=== PATIENT | female | born 2000 | race Caucasian/White ===

== ENCOUNTER 2020-04-25 08:00 | Outpatient (CLI) | payer OTHER | END 2020-04-25 23:59 | disposition home or self-care (01) | LOC: LAB.R 08:00 | PROVIDERS: ATTEND Nurse Practitioner Obstetrics & Gynecology | DX: Z11.3 Encounter for screening for infections with a predominantly sexual mode of transmission (principal) | CPT/HCPCS: 81599; 87491; 87591 ==

== ENCOUNTER 2021-10-19 05:12 | Emergency (ER) | payer OTHER ==
[2021-10-19 05:39] VITALS: BP 127/73
[2021-10-19 05:40] LABS: GLUCOSE, URINE (UA) 100 mg/dL (NEGATIVE); KETONES,URINE (UA) NEGATIVE (NEGATIVE); PH,URINE 5.5 PH (5.0-7.5)
[2021-10-19 05:42] LABS: CLARITY,URINE CLEAR (CLEAR)
[2021-10-19 05:44] LABS: BILIRUBIN,URINE NEGATIVE (NEGATIVE); HCG UR QUAL NEGATIVE
[2021-10-19 05:48] LABS: BACTERIA,URINE Few /HPF (None Seen); RBC,URINE 0-5 /HPF (0-5); SQUAMOUS EPITHELIAL CELL,UR NONE SEEN (<= Few); WBC,URINE >25 /HPF (0-5)
--- NOTE | 2021-10-19 05:57 | ED Physician Documentation ---
PD HPI FEMALE - Stated complaint Stated Complaint: FEMALE - Chief complaint Chief Complaint: UTI - History obtained from History obtained from: Patient - History of Present Illness Timing - onset: How many days ago (2) Contributing factors: No: Similar symptoms before: Has not had sx before Recently seen: Not recently seen - Additional information Additional information: c/o 2 days of burning dysuria, urinary frequency, sensation of incomplete voiding Review of Systems Constitutional: denies: Fever : reports: Dysuria, Frequency. denies: Now EGA Musculoskeletal: denies: Back pain PD PAST MEDICAL HISTORY - Past Medical History Past Medical History: No - Present Medications Home Medications: Ambulatory Orders Medication Instructions Recorded Confirmed Nitrofurantoin [Macrobid] 100 mg PO BID #9 cap 10/19/21 - Allergies Allergies/Adverse Reactions: Allergies Allergy/AdvReac Type Severity Reaction Status Date / Time No Known Drug Allergies Allergy Verified 10/19/21 05:47 PD ED PE NORMAL - Vitals Vital signs reviewed: Yes - General General: Alert and oriented X 3, No acute distress, Well developed/nourished - Abdomen Abdomen: Soft, Non tender - Back Back: No CVA TTP Results - Vitals Vitals: Oxygen O2 Source Room air - Labs Labs: Microbiology 10/19/21 05:35 Urine Culture - Final Urine,Clean Catch No growth Laboratory Tests 10/19/21 05:35 Urine Color DK. ORANGE Urine Clarity CLEAR Urine pH 5.5 Ur Specific [place] 1.020 Urine Protein Urine Glucose (UA) 100 H Urine Ketones NEGATIVE Urine Occult Blood Urine Nitrite Urine Bilirubin NEGATIVE Urine Urobilinogen Ur Leukocyte Esterase Urine RBC 0-5 Urine WBC >25 H Ur Squamous Epith Cells NONE SEEN Urine Bacteria Few Ur Microscopic Review INDICATED Urine Culture Comments INDICATED Urine HCG, Qual NEGATIVE PD MEDICAL DECISION MAKING - ED course Complexity details: considered differential, d/w patient ED course: UTI symptoms x 2 days with urinalysis c/w this diagnosis. given macrobid in ED and rx for same transmitted to [facility] Departure - Departure Disposition: 01 Home, Self Care Clinical Impression: Urinary tract infection Qualifiers: Urinary tract infection type: acute cystitis Hematuria presence: without hematuria Qualified Code(s): N30.00 - Acute cystitis without hematuria Condition: Good Instructions: ED UTI Cystitis Female Follow-Up: [facility] [Provider Group] (3-4 days if symptoms are not improving) Prescriptions: Nitrofurantoin [Macrobid] 100 mg PO BID #9 cap Comments: A prescription for the antibiotic (nitrofurantoin) has been electronically submitted to [facility] in [place]. Discharge Date/Time: 10/19/21 06:58
[2021-10-19] MEDS ORDERED: NITROFURANTOIN MACRO 100 MG CAPSULE PO STA (06:47)
== END 2021-10-19 06:58 | disposition home or self-care (01) ==
LOC: ED 05:12
DX: N30.00 Acute cystitis without hematuria (principal)
CPT/HCPCS: 81001; 81025; 87086; 99282; 99283; A9270; 81003

== ENCOUNTER 2022-02-06 13:55 | Emergency (ER) | payer OTHER ==
--- NOTE | 2022-02-06 14:28 | ED Physician Documentation ---
PD HPI CHEST PAIN - Stated complaint Stated Complaint: CHEST PX - Chief complaint Chief Complaint: Resp - History obtained from History obtained from: Patient - Additional information Additional information: 21-year-old woman has had chronic shortness of breath. It started over a year ago. She says that if she went running she got inappropriately short of breath. She was worked up by cardiology and had a stress echo per her description that was negative. Referred to pulmonology but lost to follow-up. It was not too bad until about 2 weeks ago when she got COVID and now if she goes up a flight of stairs she gets short of breath. She denies orthopnea. She does have some chest pressure with it. Denies pedal edema or calf pain. Review of Systems Constitutional: denies: Fever, Chills, Fatigue Cardiac: reports: Chest pain / pressure. denies: Palpitations, Pedal edema, Calf pain Respiratory: reports: Dyspnea. denies: Cough, Hemoptysis, Wheezing PD PAST MEDICAL HISTORY - Present Medications Home Medications: Ambulatory Orders Medication Instructions Recorded Confirmed Nitrofurantoin [Macrobid] 100 mg PO BID #9 cap 10/19/21 - Allergies Allergies/Adverse Reactions: Allergies Allergy/AdvReac Type Severity Reaction Status Date / Time No Known Drug Allergies Allergy Verified 02/06/22 14:02 PD ED PE NORMAL - Vitals Vital signs reviewed: Yes - General General: Alert and oriented X 3, No acute distress - HEENT HEENT: PERRL, EOMI - Neck Neck: Supple, no meningeal sign, No bony TTP - Cardiac Cardiac: RRR, No murmur - Respiratory Respiratory: No respiratory distress, Clear bilaterally - Abdomen Abdomen: Non tender - Back Back: No CVA TTP, No spinal TTP - Derm Derm: Normal color, Warm and dry - Extremities Extremities: No edema, No calf tenderness / cord - Neuro Neuro: Alert and oriented X 3, Normal speech Results - Vitals Vitals: Vital Signs - 24 hr 02/06/22 02/06/22 02/06/22 13:57 15:13 16:00 Temperature 36.3 C L 37.0 C Heart Rate 110 H 101 H 75 Respiratory 14 26 H 19 Rate Blood Pressure 131/97 H 118/70 O2 Saturation 99 99 100 Oxygen O2 Source Room air - EKG (time done) 1437 Rate: Rate (enter#) (91) Rhythm: NSR [place]: Normal Intervals: Normal UT QRS: Normal Ischemia: Normal ST segments - Labs Labs: Laboratory Tests 02/06/22 02/06/22 02/06/22 14:34 14:34 14:34 WBC 7.4 RBC 4.39 Hgb 14.1 Hct 41.4 MCV 94.3 MCH 32.1 H MCHC 34.1 RDW 12.2 Plt Count 276 MPV 9.5 Neut # (Auto) 4.2 Lymph # (Auto) 2.5 [place] # (Auto) 0.5 Eos # (Auto) 0.1 Baso # (Auto) 0.0 Absolute Nucleated RBC 0.00 Nucleated RBC % 0.0 D-Dimer Sodium 139 Potassium 3.8 Chloride 103 Carbon Dioxide 25 Anion Gap 11.0 BUN 9 Creatinine 0.8 Estimated GFR (MDRD) 91 Glucose 96 Calcium 8.9 Total Bilirubin 0.3 AST 30 ALT 40 Alkaline Phosphatase 70 Troponin I High Sens < 2.3 L Total Protein 6.8 Albumin 4.4 Globulin 2.4 Albumin/Globulin Ratio 1.8 Lipase 34 02/06/22 15:45 WBC RBC Hgb Hct MCV MCH MCHC RDW Plt Count MPV Neut # (Auto) Lymph # (Auto) [place] # (Auto) Eos # (Auto) Baso # (Auto) Absolute Nucleated RBC Nucleated RBC % D-Dimer < 200.0 L Sodium Potassium Chloride Carbon Dioxide Anion Gap BUN Creatinine Estimated GFR (MDRD) Glucose Calcium Total Bilirubin AST ALT Alkaline Phosphatase Troponin I High Sens Total Protein Albumin Globulin Albumin/Globulin Ratio Lipase PD MEDICAL DECISION MAKING - ED course ED course: 21-year-old woman has developed worsening chronic dyspnea since COVID a few weeks ago. ACS, PE, pneumonia were considered but no findings of this on thorough testing here. She was supposed to follow-up with pulmonology but that fell through and advised her to push for said referral. Departure - Departure Disposition: 01 Home, Self Care Clinical Impression: Dyspnea Qualifiers: Dyspnea type: dyspnea on exertion Qualified Code(s): R06.00 - Dyspnea, unspecified Condition: Good Record reviewed to determine appropriate education?: Yes Instructions: ED Dyspnea Shortness of Breath Comments: At this point it is certainly reasonable for you to follow-up with a energy analyst given your ongoing shortness of breath. Results here including chest x-ray, cardiac enzymes and CBC and EKG were normal. Return if worsening. Follow-up with your doctor, next available appointment for consideration for pulmonology referral. Discharge Date/Time: 02/06/22 16:22
[2022-02-06 14:46] LABS: BASOPHILS % (AUTO) 0.4 %; EOSINOPHILS # (AUTO) 0.1 10^3/uL (0.0-0.7); EOSINOPHILS % (AUTO) 1.5 %; HCT - HEMATOCRIT 41.4 % (37.0-47.0); HGB - HEMOGLOBIN 14.1 g/dL (12.0-16.0); LYMPHOCYTES # (AUTO) 2.5 10^3/uL (1.5-3.5); LYMPHOCYTES % (AUTO) 33.9 %; MEAN CORPUSCULAR HEMOGLOBIN 32.1 pg (27.0-31.0); MEAN CORPUSCULAR HGB CONC 34.1 g/dL (32.0-36.0); MEAN CORPUSCULAR VOLUME 94.3 fL (81.0-99.0); MEAN PLATELET VOLUME 9.5 fL (7.9-10.8); MONOCYTES # (AUTO) 0.5 10^3/uL (0.0-1.0); MONOCYTES % (AUTO) 7.2 %; NEUTROPHILS # (AUTO) 4.2 10^3/uL (1.5-6.6); NEUTROPHILS % (AUTO) 56.5 %; PLT - PLATELET COUNT 276 10^3/uL (130-450); RED BLOOD COUNT 4.39 10^6/uL (4.20-5.40); RED CELL DISTRIBUTION WIDTH 12.2 % (12.0-15.0); WHITE BLOOD COUNT 7.4 x10^3/uL (4.8-10.8)
[2022-02-06 14:57] LABS: ALBUMIN 4.4 g/dL (3.2-5.5); ALBUMIN/GLOBULIN RATIO 1.8 (1.0-2.2); BILIRUBIN,TOTAL 0.3 mg/dL (0.2-1.0); CALCIUM 8.9 mg/dL (8.5-10.3); CREATININE 0.8 mg/dL (0.4-1.0); POTASSIUM 3.8 mmol/L (3.5-5.0); TOTAL PROTEIN 6.8 g/dL (6.7-8.2)
--- NOTE | 2022-02-06 15:17 | XRAY Report ---
PROCEDURE: Chest 1 View X-Ray INDICATIONS: CHEST PAIN COMMENTS: Chest pain, Pt states difficulty breathing PRIORS: None TECHNIQUE: One view of the chest was acquired. COMPARISON: None FINDINGS: Surgical changes and devices: None. Lungs and pleura: No pleural effusions or pneumothorax. Lungs are clear. Mediastinum: Mediastinal contours appear normal. Heart size is normal. Bones and chest wall: No suspicious bony lesions. Overlying soft tissues appear unremarkable. IMPRESSION: No acute cardiopulmonary abnormality. Reviewed by: Javid Ontiveros on 02/06/2022 3:15 PM PDT Approved by: Javid Ontiveros on 02/06/2022 3:15 PM PDT Station ID: [id number]
[2022-02-06 16:22] VITALS: BP 118/70
== END 2022-02-06 16:22 | disposition home or self-care (01) ==
LOC: ED 13:55
DX: R06.09 Other forms of dyspnea (principal)
CPT/HCPCS: 36415; 80053; 83690; 84484; 85025; 85379; 93005; 99283; 99284

== ENCOUNTER 2022-09-02 14:49 | Outpatient (CLI) | payer OTHER | END 2022-09-02 14:50 | disposition home or self-care (01) | LOC: LAB.N 14:49 | PROVIDERS: ATTEND Nurse Practitioner Obstetrics & Gynecology | DX: Z32.01 Encounter for pregnancy test, result positive (principal) | CPT/HCPCS: 36415; 84702 ==

== ENCOUNTER 2022-09-04 08:09 | Outpatient (CLI) | payer OTHER | END 2022-09-04 08:10 | disposition home or self-care (01) | LOC: LAB.N 08:09 | PROVIDERS: ATTEND Nurse Practitioner Obstetrics & Gynecology | DX: Z32.01 Encounter for pregnancy test, result positive (principal) | CPT/HCPCS: 36415; 84702 ==

== ENCOUNTER 2022-09-16 21:36 | Emergency (ER) | payer OTHER ==
[2022-09-16 22:09] LABS: BILIRUBIN,URINE NEGATIVE (NEGATIVE); GLUCOSE, URINE (UA) NEGATIVE (NEGATIVE); KETONES,URINE (UA) NEGATIVE (NEGATIVE); LEUKOCYTE ESTERASE, URINE NEGATIVE (NEGATIVE); NITRITE,URINE NEGATIVE (NEGATIVE); OCCULT BLOOD,URINE LARGE (NEGATIVE); PROTEIN,URINE NEGATIVE (NEGATIVE); UROBILINOGEN,URINE 0.2 (NORMAL) E.U./dL (NORMAL)
[2022-09-16 22:18] LABS: CALCIUM 9.6 mg/dL (8.5-10.3); CREATININE 0.7 mg/dL (0.4-1.0); POTASSIUM 3.3 mmol/L (3.5-5.0)
[2022-09-16 22:20] LABS: BACTERIA,URINE None Seen /HPF (None Seen); CLARITY,URINE CLEAR (CLEAR); RBC,URINE 0-5 /HPF (0-5); SQUAMOUS EPITHELIAL CELL,UR FEW Squamous (<= Few); WBC,URINE 0-3 /HPF (0-5)
[2022-09-16 22:22] LABS: BASOPHILS % (AUTO) 0.2 %; EOSINOPHILS # (AUTO) 0.2 10^3/uL (0.0-0.7); EOSINOPHILS % (AUTO) 1.3 %; HCT - HEMATOCRIT 42.5 % (37.0-47.0); HGB - HEMOGLOBIN 14.3 g/dL (12.0-16.0); LYMPHOCYTES # (AUTO) 4.1 10^3/uL (1.5-3.5); LYMPHOCYTES % (AUTO) 34.1 %; MEAN CORPUSCULAR HEMOGLOBIN 31.4 pg (27.0-31.0); MEAN CORPUSCULAR HGB CONC 33.6 g/dL (32.0-36.0); MEAN CORPUSCULAR VOLUME 93.2 fL (81.0-99.0); MEAN PLATELET VOLUME 9.6 fL (7.9-10.8); MONOCYTES # (AUTO) 0.7 10^3/uL (0.0-1.0); MONOCYTES % (AUTO) 5.4 %; NEUTROPHILS # (AUTO) 7.1 10^3/uL (1.5-6.6); NEUTROPHILS % (AUTO) 58.7 %; PLT - PLATELET COUNT 350 10^3/uL (130-450); RED BLOOD COUNT 4.56 10^6/uL (4.20-5.40); RED CELL DISTRIBUTION WIDTH 12.2 % (12.0-15.0); WHITE BLOOD COUNT 12.1 x10^3/uL (4.8-10.8)
[2022-09-16 22:33] VITALS: BP 110/80
--- NOTE | 2022-09-16 22:55 | ED Physician Documentation ---
PD HPI FEMALE - Stated complaint Stated Complaint: FEMALE - Chief complaint Chief Complaint: General - History obtained from History obtained from: Patient, Family - History of Present Illness Pain level max: 1 Pain level max: 1 Associated symptoms: Vaginal bleeding. 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 She believes she is about 6 weeks . She states that she had clotting today as well. Nothing makes it better or worse. Mild cramping. No fevers. No chills. No vomiting. No vaginal discharge. Review of Systems Constitutional: denies: Fever, Chills GI: denies: Vomiting, Diarrhea : denies: Dysuria, Frequency, Hesitancy, Discharge Skin: denies: Rash Musculoskeletal: denies: Neck pain, Back pain Neurologic: denies: Headache PD PAST MEDICAL HISTORY - Past Medical History Past Medical History: Yes Psych: Bipolar disorder - Past Surgical History Past Surgical History: No - Present Medications Home Medications: Ambulatory Orders Medication Instructions Recorded Confirmed Pnv No.95/Ferrous Fum/Folic AC 1 cap PO DAILY 09/16/22 09/16/22 [ Tablet] Quetiapine Fumarate [Seroquel] 50 mg PO DAILY 09/16/22 09/16/22 lamoTRIgine [Lamictal] 200 mg PO DAILY 09/16/22 09/16/22 - Allergies Allergies/Adverse Reactions: Allergies Allergy/AdvReac Type Severity Reaction Status Date / Time No Known Drug Allergies Allergy Verified 09/16/22 21:38 - Social History Does the pt smoke?: No Smoking Status: Former smoker Does the pt drink ETOH?: No Does the pt have substance abuse?: No - Immunizations Immunizations are current?: Yes - POLST Patient has POLST: No PD ED PE NORMAL - Vitals Vital signs reviewed: Yes - General General: Alert and oriented X 3, No acute distress, Well developed/nourished - HEENT HEENT: Moist mucous membranes - Neck Neck: Supple, no meningeal sign - Cardiac Cardiac: RRR, Strong equal pulses - Respiratory Respiratory: No respiratory distress, Clear bilaterally - Abdomen Abdomen: Soft, Non tender, Non distended - Derm Derm: Warm and dry - Extremities Extremities: No edema - Neuro Neuro: Alert and oriented X 3 - Psych Psych: Normal mood, Normal affect Results - Vitals Vitals: Vital Signs - 24 hr 09/16/22 09/16/22 09/16/22 21:40 21:59 22:33 Temperature 36.9 C Heart Rate 110 H 115 H 85 Respiratory 20 18 16 Rate Blood Pressure 127/81 H 125/88 H 110/80 O2 Saturation 100 98 100 Oxygen O2 Source Room air - Labs Labs: Laboratory Tests 09/16/22 09/16/22 09/16/22 21:47 21:55 21:55 WBC 12.1 H RBC 4.56 Hgb 14.3 Hct 42.5 MCV 93.2 MCH 31.4 H MCHC 33.6 RDW 12.2 Plt Count 350 MPV 9.6 Neut # (Auto) 7.1 H Lymph # (Auto) 4.1 H [place] # (Auto) 0.7 Eos # (Auto) 0.2 Baso # (Auto) 0.0 Absolute Nucleated RBC 0.00 Nucleated RBC % 0.0 Sodium 135 Potassium 3.3 L Chloride 100 L Carbon Dioxide 20 L Anion Gap 15.0 H BUN 6 Creatinine 0.7 Estimated GFR (MDRD) 106 Glucose 102 H Calcium 9.6 HCG, Quant Urine Color YELLOW Urine Clarity CLEAR Urine pH 7.0 Ur Specific [place] <=1.005 Urine Protein NEGATIVE Urine Glucose (UA) NEGATIVE Urine Ketones NEGATIVE Urine Occult Blood LARGE H Urine Nitrite NEGATIVE Urine Bilirubin NEGATIVE Urine Urobilinogen 0.2 (NORMAL) Ur Leukocyte Esterase NEGATIVE Urine RBC 0-5 Urine WBC 0-3 Ur Squamous Epith Cells FEW Squamous Urine Bacteria None Seen Ur Microscopic Review INDICATED Urine Culture Comments NOT INDICATED Blood Type Blood Type Recheck 09/16/22 09/16/22 09/16/22 21:55 21:55 22:52 WBC RBC Hgb Hct MCV MCH MCHC RDW Plt Count MPV Neut # (Auto) Lymph # (Auto) [place] # (Auto) Eos # (Auto) Baso # (Auto) Absolute Nucleated RBC Nucleated RBC % Sodium Potassium Chloride Carbon Dioxide Anion Gap BUN Creatinine Estimated GFR (MDRD) Glucose Calcium HCG, Quant 12976.00 Urine Color Urine Clarity Urine pH Ur Specific [place] Urine Protein Urine Glucose (UA) Urine Ketones Urine Occult Blood Urine Nitrite Urine Bilirubin Urine Urobilinogen Ur Leukocyte Esterase Urine RBC Urine WBC Ur Squamous Epith Cells Urine Bacteria Ur Microscopic Review Urine Culture Comments Blood Type O POSITIVE Blood Type Recheck O POSITIVE PD Medical Decision Making - ED course Complexity details: reviewed results, re-evaluated patient, considered differential, d/w patient ED course: 21-year-old female with vaginal bleeding. hCG is approximately 38,000. No significant anemia. Her ultrasound reveals an intrauterine , approximately 6 weeks 1 day. We will have her follow-up with her doctor for repeat hCG. Patient counseled regarding signs and symptoms for which I believe and urgent re-evaluation would be necessary. Patient with good understanding of and agreement to plan and is comfortable going home at this time This document was made in part using voice recognition software. While efforts are made to proofread this document, sound alike and grammatical errors may occur. Departure - Departure Disposition: 01 Home, Self Care Clinical Impression: Vaginal bleeding affecting early Condition: Good Instructions: ED Miscarriage Poss Follow-Up: Jacquie Cool CNM, TREATMENT PLANT OPERATOR [Provider Admit Priv/Credential] - Within 3 Days Comments: Your hCG today is 38,234. Please follow-up with Jacquie Roman in approximately 3 days for repeat hCG. Your ultrasound today does show an intrauterine at approximately 6 weeks and 1 day. Please return if you worsen.
--- NOTE | 2022-09-17 00:28 | Ultrasound Report ---
PROCEDURE: OB First Trimester w/TV INDICATIONS: 6 weeks preg, vag bleed OUTSIDE/PRIOR DATING DATA: Last menstrual period (LMP): 07/31/2022. LMP-based estimated date of delivery (KATIUSKA): 05/07/2023. First dating scan (date and location): 09/16/2022. Estimated date of delivery (KATIUSKA) from first dating scan: 05/11/2023. TECHNIQUE: Real-time scanning was performed of the fetus and maternal pelvic organs, with image documentation. Endovaginal scanning was also performed to better visualize the fetus and maternal ovaries. COMPARISON: None. FINDINGS: Embryo: There is an intrauterine with a gestational sac, yolk sac, and pole identifi ed. The crown-rump length measures up to 0.47 cm corresponding to gestational age of 6 weeks 1 day. A small pole is noted. There is heart motion with a rate of 107 bpm. Measurement variability in dating: +/- 4 weeks by LMP, +/- 7 days by mean sac diameter (use before 6 weeks gestation if crown-rump length not able to be measured), +/- 5 days by crown-rump length (6-12 weeks gestation). Maternal organs: Ovaries appear within normal size limits. There is a thick-walled cyst within the le ft ovary with peripheral vascularity and color Doppler interrogation measuring up to approximately 1. 3 cm. IMPRESSION: 1. Single living team with cartilage gestational age of 6 weeks 1 day corresponding to an e stimated delivery date of 05/11/2023. Reviewed by: John Paez MD on 09/17/2022 12:38 AM PST Approved by: John Paez MD on 09/17/2022 12:38 AM PST Station ID: [id number]
== END 2022-09-16 23:40 | disposition home or self-care (01) ==
LOC: ED 21:36
DX: O20.9 Hemorrhage in early pregnancy, unspecified (principal); Z3A.01 Less than 8 weeks gestation of pregnancy; Z87.891 Personal history of nicotine dependence
CPT/HCPCS: 36415; 80048; 81001; 81003; 84702; 85025; 86900; 86901; 87086; 99284

== ENCOUNTER 2022-10-16 14:02 | Outpatient (CLI) | payer OTHER ==
[2022-10-16 17:58] LABS: BASOPHILS % (AUTO) 0.1 %; EOSINOPHILS # (AUTO) 0.1 10^3/uL (0.0-0.7); EOSINOPHILS % (AUTO) 1.3 %; HCT - HEMATOCRIT 40.1 % (37.0-47.0); HGB - HEMOGLOBIN 13.8 g/dL (12.0-16.0); LYMPHOCYTES # (AUTO) 2.5 10^3/uL (1.5-3.5); LYMPHOCYTES % (AUTO) 31.5 %; MEAN CORPUSCULAR HEMOGLOBIN 32.2 pg (27.0-31.0); MEAN CORPUSCULAR HGB CONC 34.4 g/dL (32.0-36.0); MEAN CORPUSCULAR VOLUME 93.5 fL (81.0-99.0); MEAN PLATELET VOLUME 10.5 fL (7.9-10.8); MONOCYTES # (AUTO) 0.4 10^3/uL (0.0-1.0); MONOCYTES % (AUTO) 4.8 %; NEUTROPHILS # (AUTO) 4.9 10^3/uL (1.5-6.6); PLT - PLATELET COUNT 313 10^3/uL (130-450); RED BLOOD COUNT 4.29 10^6/uL (4.20-5.40); RED CELL DISTRIBUTION WIDTH 12.3 % (12.0-15.0); WHITE BLOOD COUNT 7.9 x10^3/uL (4.8-10.8)
[2022-10-16 20:42] LABS: ESTIMATED AVERAGE GLUCOSE 94 mg/dL (70-100); HEMOGLOBIN A1c% 4.9 % (4.27-6.07)
[2022-10-18 05:12] LABS: HBsAG SCREEN Negative (Negative)
[2022-10-18 06:12] LABS: RPR Non Reactive (Non Reactive)
[2022-10-18 08:09] LABS: VARICELLA-ZOSTER AB IGG <135 index (Immune >165)
[2022-10-20 01:07] LABS: HIV SCREEN 4TH GENERATION Non Reactive (Non Reactive)
[2022-10-20 07:08] LABS: HCV AB Non Reactive (Non Reactive)
== END 2022-10-16 14:03 | disposition home or self-care (01) ==
LOC: LAB.N 14:02
PROVIDERS: ATTEND Nurse Practitioner Obstetrics & Gynecology
DX: Z36.89 Encounter for other specified antenatal screening (principal)
CPT/HCPCS: 36415; 83036; 85025; 86592; 86762; 86787; 86803; 86850; 86900; 86901; 87340; 87389

== ENCOUNTER 2022-10-31 14:19 | Outpatient (CLI) | payer OTHER ==
--- NOTE | 2022-10-31 15:40 | Ultrasound Report ---
PROCEDURE: OB First Trimester w/TV INDICATIONS: DATING AND VIABILITY OUTSIDE/PRIOR DATING DATA: Last menstrual period (LMP): 07/31/2022. LMP-based estimated date of delivery (KATIUSKA): 04/29/2023. First dating scan (date and location): 09/16/2022. Estimated date of delivery (KATIUSKA) from first dating scan: 05/11/2023 (working KATIUSKA). TECHNIQUE: Real-time scanning was performed of the fetus and maternal pelvic organs, with image documentation. Endovaginal scanning was also performed to better visualize the fetus and maternal ovaries. COMPARISON: 09/16/2022 FINDINGS: Cervix is closed measuring 3.8 cm. Gestational sac measures 4.2 cm. [place]-rump length is 1.8 cm, demetrius esponding to an ultrasound age of 8 weeks and 2 days. No heart rate is detected. Left corpus shannan teum. IMPRESSION: Findings compatible with failure. Reviewed by: Andres Bee MD on 10/31/2022 3:39 PM PDT Approved by: Andres Bee MD on 10/31/2022 3:39 PM PDT Station ID: [id number]
== END 2022-10-31 14:20 | disposition home or self-care (01) ==
LOC: DI 14:19
PROVIDERS: ATTEND Nurse Practitioner Obstetrics & Gynecology
DX: Z36.87 Encounter for antenatal screening for uncertain dates (principal)

== ENCOUNTER 2022-11-06 16:34 | Outpatient (CLI) | payer OTHER | END 2022-11-06 16:35 | disposition home or self-care (01) | LOC: LAB.N 16:34 | PROVIDERS: ATTEND Nurse Practitioner Obstetrics & Gynecology | DX: O02.1 Missed abortion (principal) | CPT/HCPCS: 36415; 84702 ==

== ENCOUNTER 2023-02-04 15:13 | Outpatient (CLI) | payer OTHER | END 2023-02-04 15:14 | disposition home or self-care (01) | LOC: LAB.N 15:13 | PROVIDERS: ATTEND Nurse Practitioner Obstetrics & Gynecology | DX: O02.1 Missed abortion (principal) | CPT/HCPCS: 36415; 84702 ==

== ENCOUNTER 2023-02-06 14:37 | Outpatient (CLI) | payer OTHER | END 2023-02-06 14:38 | disposition home or self-care (01) | LOC: LAB.N 14:37 | PROVIDERS: ATTEND Nurse Practitioner Obstetrics & Gynecology | DX: Z32.01 Encounter for pregnancy test, result positive (principal) | CPT/HCPCS: 36415; 84702 ==

== ENCOUNTER 2023-02-06 16:23 | Outpatient (CLI) | payer OTHER ==
--- NOTE | 2023-02-06 22:49 | Ultrasound Report ---
PROCEDURE: OB First Trimester w/TV INDICATIONS: POSITIVE TEST OUTSIDE/PRIOR DATING DATA: Last menstrual period (LMP): 01/07/2023. LMP-based estimated date of delivery (KATIUSKA): 10/14/2023. First dating scan (date and location): 02/06/2023. Estimated date of delivery (KATIUSKA) from first dating scan: Not applicable. TECHNIQUE: Real-time scanning was performed of the fetus and maternal pelvic organs, with image documentation. Endovaginal scanning was also performed to better visualize the fetus and maternal ovaries. COMPARISON: None. FINDINGS: Ill-defined possible intrauterine gestational sac present. It measures 3 mm corresponding to 5 weeks 0 days. No crown-rump length identified. No heart tones. No definitive yolk sac. Other: No perigestational fluid collection. Measurement variability in dating: +/- 4 weeks by LMP, +/- 7 days by mean sac diameter (use before 6 weeks gestation if crown-rump length not able to be measured), +/- 5 days by crown-rump length (6-12 weeks gestation). Maternal organs: Ovaries demonstrate cysts with one appearing complex such as corpus luteal cyst. IMPRESSION: Ill-defined possible intrauterine gestational sac without visualized pole or heart tones. Possi ble gestational sac measures 5 weeks 0 days. Recommend correlation of beta hCG levels and short inter alvin imaging ultrasound follow-up. Reviewed by: Pebbles Bonilla MD on 02/06/2023 10:48 PM PDT Approved by: Pebbles Bonilla MD on 02/06/2023 10:48 PM PDT Station ID: [id number]
== END 2023-02-06 16:24 | disposition home or self-care (01) ==
LOC: DI 16:23
PROVIDERS: ATTEND Nurse Practitioner Obstetrics & Gynecology
DX: Z32.01 Encounter for pregnancy test, result positive (principal)
CPT/HCPCS: 36415; 84702

== ENCOUNTER 2023-03-02 21:13 | Emergency (ER) | payer OTHER ==
[2023-03-02 21:42] LABS: BASOPHILS % (AUTO) 0.3 %; EOSINOPHILS # (AUTO) 0.1 10^3/uL (0.0-0.7); EOSINOPHILS % (AUTO) 0.6 %; HCT - HEMATOCRIT 40.7 % (37.0-47.0); HGB - HEMOGLOBIN 13.7 g/dL (12.0-16.0); LYMPHOCYTES # (AUTO) 3.1 10^3/uL (1.5-3.5); MEAN CORPUSCULAR HEMOGLOBIN 31.8 pg (27.0-31.0); MEAN CORPUSCULAR HGB CONC 33.7 g/dL (32.0-36.0); MEAN CORPUSCULAR VOLUME 94.4 fL (81.0-99.0); MEAN PLATELET VOLUME 9.7 fL (7.9-10.8); MONOCYTES # (AUTO) 0.6 10^3/uL (0.0-1.0); MONOCYTES % (AUTO) 5.5 %; NEUTROPHILS # (AUTO) 7.3 10^3/uL (1.5-6.6); NEUTROPHILS % (AUTO) 65.2 %; PLT - PLATELET COUNT 291 10^3/uL (130-450); RED BLOOD COUNT 4.31 10^6/uL (4.20-5.40); RED CELL DISTRIBUTION WIDTH 12.8 % (12.0-15.0); WHITE BLOOD COUNT 11.2 x10^3/uL (4.8-10.8)
[2023-03-02 21:48] LABS: BILIRUBIN,URINE NEGATIVE (NEGATIVE); GLUCOSE, URINE (UA) NEGATIVE (NEGATIVE); KETONES,URINE (UA) NEGATIVE (NEGATIVE); LEUKOCYTE ESTERASE, URINE NEGATIVE (NEGATIVE); NITRITE,URINE NEGATIVE (NEGATIVE); OCCULT BLOOD,URINE NEGATIVE (NEGATIVE); PH,URINE 6.5 PH (5.0-7.5); PROTEIN,URINE NEGATIVE (NEGATIVE); UROBILINOGEN,URINE 0.2 (NORMAL) E.U./dL (NORMAL)
[2023-03-02 21:51] LABS: CLARITY,URINE CLEAR (CLEAR)
[2023-03-02 21:57] LABS: ALBUMIN 4.5 g/dL (3.2-5.5); BILIRUBIN,TOTAL 0.4 mg/dL (0.2-1.0); CALCIUM 9.3 mg/dL (8.5-10.3); CREATININE 0.7 mg/dL (0.6-1.3); POTASSIUM 3.5 mmol/L (3.5-4.5); TOTAL PROTEIN 6.8 g/dL (6.4-8.9)
--- NOTE | 2023-03-02 23:08 | ED Physician Documentation ---
PD HPI ABD PAIN - Stated complaint Stated Complaint: CRAMPING - Chief complaint Chief Complaint: Abd Pain - History obtained from History obtained from: Patient, Family - Additional information Additional information: The patient comes to the emergency department chief complaint of lower abdominal cramps. She is about 7 weeks and has had a miscarriage once before and is mainly concerned because of this. She denies any vaginal bleeding. She has already had ultrasound demonstrating IUP for similar concerns a couple of weeks ago. The patient denies any fevers or chills. No nausea or vomiting. She has not had any changes in her bowel movements and denies any urinary discomfort. No other complaints at this time. She is sexually active with her significant other only. PD PAST MEDICAL HISTORY - Past Medical History Psych: Bipolar disorder - Past Surgical History Past Surgical History: No - Present Medications Home Medications: Ambulatory Orders Medication Instructions Recorded Confirmed Pnv No.95/Ferrous Fum/Folic AC 1 cap PO DAILY 09/16/22 09/16/22 [ Tablet] Quetiapine Fumarate [Seroquel] 50 mg PO DAILY 09/16/22 09/16/22 lamoTRIgine [Lamictal] 200 mg PO DAILY 09/16/22 09/16/22 - Allergies Allergies/Adverse Reactions: Allergies Allergy/AdvReac Type Severity Reaction Status Date / Time No Known Drug Allergies Allergy Verified 03/02/23 21:29 - Social History Does the pt smoke?: No Smoking Status: Former smoker Does the pt drink ETOH?: No Does the pt have substance abuse?: No - Immunizations Immunizations are current?: Yes - POLST Patient has POLST: No PD ED PE NORMAL - Vitals Vital signs reviewed: Yes - General General: Alert and oriented X 3, No acute distress, Well developed/nourished - HEENT HEENT: Atraumatic, PERRL, EOMI, Moist mucous membranes - Neck Neck: Supple, no meningeal sign - Cardiac Cardiac: RRR, No murmur - Respiratory Respiratory: No respiratory distress, Clear bilaterally - Abdomen Abdomen: Soft, Non tender, Non distended - Derm Derm: Normal color, Warm and dry, No rash - Extremities Extremities: No deformity - Neuro Neuro: Alert and oriented X 3 - Psych Psych: Normal mood, Normal affect Results - Vitals Vitals: Oxygen O2 Source Room air - Labs Labs: Laboratory Tests 03/02/23 03/02/23 03/02/23 21:30 21:38 21:38 WBC 11.2 H RBC 4.31 Hgb 13.7 Hct 40.7 MCV 94.4 MCH 31.8 H MCHC 33.7 RDW 12.8 Plt Count 291 MPV 9.7 Neut # (Auto) 7.3 H Lymph # (Auto) 3.1 [place] # (Auto) 0.6 Eos # (Auto) 0.1 Baso # (Auto) 0.0 Absolute Nucleated RBC 0.00 Nucleated RBC % 0.0 Sodium Potassium Chloride Carbon Dioxide Anion Gap BUN Creatinine Estimated GFR (MDRD) Glucose Calcium Total Bilirubin AST ALT Alkaline Phosphatase Total Protein Albumin Globulin Albumin/Globulin Ratio Lipase Beta HCG, Quant 257373.9 Urine Color YELLOW Urine Clarity CLEAR Urine pH 6.5 Ur Specific [place] <=1.005 Urine Protein NEGATIVE Urine Glucose (UA) NEGATIVE Urine Ketones NEGATIVE Urine Occult Blood NEGATIVE Urine Nitrite NEGATIVE Urine Bilirubin NEGATIVE Urine Urobilinogen 0.2 (NORMAL) Ur Leukocyte Esterase NEGATIVE Ur Microscopic Review NOT INDICATED Urine Culture Comments NOT INDICATED 03/02/23 21:38 WBC RBC Hgb Hct MCV MCH MCHC RDW Plt Count MPV Neut # (Auto) Lymph # (Auto) [place] # (Auto) Eos # (Auto) Baso # (Auto) Absolute Nucleated RBC Nucleated RBC % Sodium 136 Potassium 3.5 Chloride 106 Carbon Dioxide 24 Anion Gap 6.0 BUN 4 L Creatinine 0.7 Estimated GFR (MDRD) 105 Glucose 85 Calcium 9.3 Total Bilirubin 0.4 AST 21 ALT 22 Alkaline Phosphatase 72 Total Protein 6.8 Albumin 4.5 Globulin 2.3 Albumin/Globulin Ratio 2.0 Lipase 33 Beta HCG, Quant Urine Color Urine Clarity Urine pH Ur Specific [place] Urine Protein Urine Glucose (UA) Urine Ketones Urine Occult Blood Urine Nitrite Urine Bilirubin Urine Urobilinogen Ur Leukocyte Esterase Ur Microscopic Review Urine Culture Comments - Rads (name of study) OB ultrasound first trimester Relevant Findings:: Final report received, See rad report (Viable intrauterine ) PD Medical Decision Making - ED course Complexity details: reviewed old records, reviewed results, re-evaluated patient, considered differential, d/w patient, d/w family ED course: The patient was evaluated with ultrasound and urinalysis. The urinalysis was completely unremarkable. The patient's ER abdominal panel was also normal with a beta-hCG of 123,000. The patient's CBC showed a white blood cell count of 11.2 and a normal H&H. Her ultrasound showed a viable IUP at approximately 7 weeks 4 days. I discussed with the patient that at this point in time, there is no evidence of any trouble with her . We have discussed the need for OB follow-up and the usual indications for return. Departure - Departure Disposition: 01 Home, Self Care Clinical Impression: Pelvic pain affecting Qualifiers: Trimester: first trimester Qualified Code(s): O26.891 - Other specified related conditions, first trimester Condition: Stable Instructions: Preg Comfort Tips Comments: Your ultrasound looks great tonight. Your baby is just past 7 weeks in size and has a good heartbeat and is in the right place in your uterus. There is no evidence of any concerning findings at this time. Please follow-up with Ms. Jacquie Cool, your sheriff's sergeant, as scheduled on March 13. Forms: PCP List Discharge Date/Time: 03/02/23 23:11
[2023-03-02 23:13] VITALS: BP 120/86
--- NOTE | 2023-03-03 00:11 | Ultrasound Report ---
PROCEDURE: OB First Trimester INDICATIONS: pelvic cramping 7 weeks preg OUTSIDE/PRIOR DATING DATA: Last menstrual period (LMP): 01/07/2023. LMP-based estimated date of delivery (KATIUSKA): 10/14/2023. First dating scan (date and location): 02/19/2023. Estimated date of delivery (KATIUSKA) from first dating scan: 10/15/2023. TECHNIQUE: Real-time scanning was performed of the fetus and maternal pelvic organs, with image documentation. Patient declined transvaginal examination. COMPARISON: 02/19/2023 FINDINGS: Embryo: There is an intrauterine with a gestational sac, yolk sac, and pole redemons trated. The crown-rump length measures up to 1.3 cm corresponding to a calculated gestational age of 7 weeks 4 days. Other: There is a subchorionic hematoma measuring 3.6 x 0.8 x 1.7 cm. Measurement variability in dating: +/- 4 weeks by LMP, +/- 7 days by mean sac diameter (use before 6 weeks gestation if crown-rump length not able to be measured), +/- 5 days by crown-rump length (6-12 weeks gestation). Maternal organs: Left ovary not well visualized. Within the right ovary, there is a hypoechoic struct ure with peripheral vascularity redemonstrated compatible with a corpus luteal cyst. There is also a simple appearing cyst measuring up to 2.6 cm. IMPRESSION: 1. Single living intrauterine demonstrating appropriate interval growth with calculated ges tational age of 7 weeks 4 days. 2. Probable corpus luteal cyst in the right ovary as well as an adjacent simple appearing cyst. Reviewed by: John Paez MD on 03/03/2023 12:09 AM PDT Approved by: John Paez MD on 03/03/2023 12:09 AM PDT Station ID: [id number]
== END 2023-03-02 23:11 | disposition home or self-care (01) ==
LOC: ED 21:13
DX: O26.891 Other specified pregnancy related conditions, first trimester (principal); R10.30 Lower abdominal pain, unspecified; Z87.891 Personal history of nicotine dependence; Z3A.01 Less than 8 weeks gestation of pregnancy
CPT/HCPCS: 36415; 80053; 81001; 81003; 83690; 84702; 85025; 87086; 99281; 99283

== ENCOUNTER 2023-03-25 14:39 | Outpatient (CLI) | payer OTHER ==
[2023-03-25 17:56] LABS: BASOPHILS % (AUTO) 0.2 %; EOSINOPHILS # (AUTO) 0.1 10^3/uL (0.0-0.7); HCT - HEMATOCRIT 41.3 % (37.0-47.0); HGB - HEMOGLOBIN 13.7 g/dL (12.0-16.0); LYMPHOCYTES # (AUTO) 2.5 10^3/uL (1.5-3.5); LYMPHOCYTES % (AUTO) 27.7 %; MEAN CORPUSCULAR HEMOGLOBIN 31.4 pg (27.0-31.0); MEAN CORPUSCULAR HGB CONC 33.2 g/dL (32.0-36.0); MEAN CORPUSCULAR VOLUME 94.7 fL (81.0-99.0); MEAN PLATELET VOLUME 10.4 fL (7.9-10.8); MONOCYTES # (AUTO) 0.5 10^3/uL (0.0-1.0); MONOCYTES % (AUTO) 4.9 %; NEUTROPHILS % (AUTO) 65.9 %; PLT - PLATELET COUNT 291 10^3/uL (130-450); RED BLOOD COUNT 4.36 10^6/uL (4.20-5.40); WHITE BLOOD COUNT 9.2 x10^3/uL (4.8-10.8)
[2023-03-26 04:09] LABS: HBsAG SCREEN Negative (Negative); HCV AB Non Reactive (Non Reactive); HIV SCREEN 4TH GENERATION Non Reactive (Non Reactive)
[2023-03-26 06:11] LABS: RPR Non Reactive (Non Reactive)
[2023-03-26 11:11] LABS: VARICELLA-ZOSTER AB IGG <135 index (Immune >165)
== END 2023-03-25 14:40 | disposition home or self-care (01) ==
LOC: LAB.N 14:39
PROVIDERS: ATTEND Nurse Practitioner Obstetrics & Gynecology
DX: Z36.89 Encounter for other specified antenatal screening (principal)
CPT/HCPCS: 36415; 85025; 86592; 86762; 86787; 86803; 86850; 86900; 86901; 87340; 87389

== ENCOUNTER 2023-05-28 18:24 | Outpatient (CLI) | payer OTHER ==
--- NOTE | 2023-05-29 17:42 | Ultrasound Report ---
PROCEDURE: OB Detailed Eval INDICATIONS: SUPERVISION OF OUTSIDE/PRIOR DATING DATA: Last menstrual period (LMP): 01/07/2023. LMP-based estimated date of delivery (KATIUSKA): 10/14/2023. First dating scan (date and location): 02/19/2023. Estimated date of delivery (KATIUSKA) from first dating scan: 10/15/2023. The below data below was generated using the ultrasound KATIUSKA of 10/15/2023 TECHNIQUE: Real-time scanning was performed of the fetus, with image documentation and biometric measurements. Endovaginal scanning: Not performed COMPARISON: None. FINDINGS: General: A single living intrauterine gestation is present. Presentation: Variable Placenta: Placental position is anterior, without previa. Amniotic fluid index: 13 cm, within normal limits for gestational age. heart rate: 148 beats per minute. Maternal cervical canal: 4.3 cm long; normal length is 2.5 cm or more. biometrics: Biparietal diameter: 4.7 cm, 20 weeks and 1 day Head circumference: 18.03 cm, 20 weeks and 3 days Abdominal circumference: 15.4 cm, 20 weeks and 4 days Femur length: 3.3 cm, 20 weeks and 2 days Estimated gestational age from initial scan: 20 weeks and 0 days Composite gestational age from present scan: 20 weeks and 1 day Estimated weight and percentile: 356 g, 72 percentile Measurement variability in biometric dating: +/- 10 days from 12-20 weeks gestation, +/- 2 weeks from 20-30 weeks gestation, +/- 3 weeks at 30 weeks gestation or later. Anatomic survey: Neuro: Ventricles are normal at less than 10 mm. Cisterna magna is normal at 3-11 mm. Cerebellum i s normal in size and morphology. Nuchal skin fold: Normal at less than 6 mm between 14 and 20 weeks gestational age. Face: Nose and lips, facial profile are not well seen. Spine: No evidence for spina bifida. Heart: 4-chambered heart and the ventricular outflow tracts are not well visualized. Diaphragm: Diaphragm is intact. Stomach: Left-sided stomach is present. Kidneys: No hydronephrosis. Normal is less than 5 mm in 2nd trimester, less than 7 mm in 3rd trimester. Cord: 3 vessel cord has orthotopic insertion. Bladder: Normal in size. Extremities: All 4 extremities are visualized. IMPRESSION: Single living intrauterine gestation with estimated sonographic gestational age of approximately 20 w eeks and 1 day with estimated weight of 356 g (72nd percentile). Expected interval growth has o ccurred. Suboptimal visualization of the facial profile, four-chamber heart, and ventricular outflow tra cts secondary to positioning throughout the examination. Follow-up recommended. Reviewed by: Parvez Mayer MD on 05/29/2023 5:40 PM PDT Approved by: Parvez Mayer MD on 05/29/2023 5:40 PM PDT Station ID: [id number]
== END 2023-05-28 18:25 | disposition home or self-care (01) ==
LOC: DI 18:24
PROVIDERS: ATTEND Nurse Practitioner Obstetrics & Gynecology
DX: Z34.02 Encounter for supervision of normal first pregnancy, second trimester (principal); Z36.89 Encounter for other specified antenatal screening

== ENCOUNTER 2023-06-30 19:42 | Outpatient (CLI) | payer OTHER ==
--- NOTE | 2023-07-01 13:59 | Ultrasound Report ---
PROCEDURE: OB F/U or Repeat INDICATIONS: SUPERVISION OF OUTSIDE/PRIOR DATING DATA: Last menstrual period (LMP): 01/07/2023. LMP-based estimated date of delivery (KATIUSKA): 10/14/2023. First dating scan (date and location): 05/28/2023. Estimated date of delivery (KATIUSKA) from first dating scan: 10/15/2023. The below data below was generated using the ultrasound KATIUSKA of 10/15/2023 TECHNIQUE: Real-time scanning was performed of the fetus, with image documentation and biometric measurements. COMPARISON: 05/28/2023 FINDINGS: General: A single living intrauterine gestation is present. Presentation: Vertex Placenta: Placental position is anterior, without previa. Amniotic fluid index: 14.1 cm, within normal limits for gestational age. heart rate: 141 beats per minute. Maternal cervical canal: 3.6 cm long; normal length is 2.5 cm or more. biometrics: Biparietal diameter: 4.7 cm. 20 weeks 1 day Head circumference: 18.0 cm. 20 weeks 3 days Abdominal circumference: 15.4 cm. 20 weeks 3 days Femur length: 3.3 cm. 20 weeks 2 days Estimated gestational age from initial scan: 20 weeks 0 days Composite gestational age from present scan: 20 weeks 1 day Estimated weight and percentile: 356 g. 72.4 percentile Measurement variability in biometric dating: +/- 10 days from 12-20 weeks gestation, +/- 2 weeks from 20-30 weeks gestation, +/- 3 weeks at 30 weeks gestation or more. anatomy survey. Neuro: Previously normal Nuchal skin fold: Previously normal Face: Nose and lips, facial profile are normal. Spine: Previously normal. Heart: 4 chambered heart is present, with normal ventricular outflow tracts. Diaphragm: Diaphragm is intact. Stomach: Left-sided stomach is present. Kidneys: No hydronephrosis. Normal is less than 4 mm in second trimester, less than 7 mm in thi rd trimester. Cord: Previously normal. Bladder: Normal in size. IMPRESSION: 1. anatomic survey completed and normal. 2. MARIO 14.1 cm. 3. Estimated weight 356 g, 72.4 percentile 4. Composite gestational age from initial scan 20 weeks 0 days. Reviewed by: Javid Ontiveros on 07/01/2023 1:57 PM PST Approved by: Javid Ontiveros on 07/01/2023 1:57 PM PST Station ID: [id number]
== END 2023-06-30 19:43 | disposition home or self-care (01) ==
LOC: DI 19:42
PROVIDERS: ATTEND Nurse Practitioner Obstetrics & Gynecology
DX: Z34.02 Encounter for supervision of normal first pregnancy, second trimester (principal); Z36.89 Encounter for other specified antenatal screening

== ENCOUNTER 2023-07-14 08:12 | Outpatient (CLI) | payer OTHER ==
[2023-07-14 08:41] LABS: HCT - HEMATOCRIT 38.3 % (37.0-47.0); HGB - HEMOGLOBIN 12.7 g/dL (12.0-16.0); MEAN CORPUSCULAR HEMOGLOBIN 31.8 pg (27.0-31.0); MEAN CORPUSCULAR HGB CONC 33.2 g/dL (32.0-36.0); MEAN PLATELET VOLUME 10.2 fL (7.9-10.8); RED BLOOD COUNT 3.99 10^6/uL (4.20-5.40); RED CELL DISTRIBUTION WIDTH 13.9 % (12.0-15.0); WHITE BLOOD COUNT 10.3 x10^3/uL (4.8-10.8)
[2023-07-14 08:54] LABS: GTT GLUCOSE,FASTING 89 mg/dL (74-109)
== END 2023-07-14 08:13 | disposition home or self-care (01) ==
LOC: LAB 08:12
PROVIDERS: ATTEND Nurse Practitioner Obstetrics & Gynecology
DX: Z36.9 Encounter for antenatal screening, unspecified (principal)
CPT/HCPCS: 36415; 82951; 85027

== ENCOUNTER 2023-08-31 17:08 | Outpatient (CLI) | payer OTHER ==
[2023-08-31 17:41] VITALS: BP 118/81
--- NOTE | 2023-08-31 17:43 | PROVIDER PROGRESS NOTE ---
- HPI Chief Complaint: Decreased movement Current : Vital Signs Temperature 37.2 C 08/31/23 17:22 Heart Rate 97 08/31/23 17:22 Respiratory Rate 16 08/31/23 17:22 Blood Pressure 118/81 H 08/31/23 17:22 Temperature 37.2 C 08/31/23 17:22 Heart Rate 97 08/31/23 17:22 Respiratory Rate 16 08/31/23 17:22 Blood Pressure 118/81 H 08/31/23 17:22 O2 Saturation If not protocol: Oxygen Flow, liters/minute - Procedures OB Procedure Performed: NST Diagnosis/Indication for NST: Decreased movement - Plan Plan: Zay is a 22yo @ 33.5wks gestation who presents to [facility] with c/o decreased movement. She states she felt the baby move early this morning but has not felt him move since that time. She denies vaginal bleeding, leakage of fluid or contractions. She is supported by her Edenilson. NST reactive. FHR baseline 130s, moderate variability, + accels, no decels No contractions appreciated via tocometry Pt feels several movements during NST and feels very reassured. Pt has emergency contact number. Pt released home with precautions. She verbalized understanding and agrees to above plan. She denies further quest ions or concerns at this time. FINAL DIAGNOSIS: Decreased movement, third trimester
== END 2023-08-31 17:55 | disposition home or self-care (01) ==
LOC: WFO 17:08 → FBP 17:09 → WFO 17:55
PROVIDERS: ATTEND Nurse Practitioner Obstetrics & Gynecology
DX: O36.8130 Decreased fetal movements, third trimester, not applicable or unspecified (principal); Z3A.33 33 weeks gestation of pregnancy
CPT/HCPCS: 59025; 99213; 99214

== ENCOUNTER 2023-10-22 07:49 | Inpatient (IN) | payer OTHER ==
[2023-10-22] MEDS ORDERED: TRANEXAMIC ACID IN NACL 1,000 MG/100 ML BAG IV PRN (09:09)
[2023-10-22] MEDS ORDERED: CARBOPROST TROMETHAMINE 250 MCG/ML VIAL IM PRN (09:09)
[2023-10-22] MEDS ORDERED: METHYLERGONOVINE 0.2 MG/ML VIAL IM PRN (09:09)
[2023-10-22] MEDS ORDERED: OXYTOCIN 10 UNIT/ML VIAL IM PRN (09:09)
[2023-10-22] MEDS ORDERED: OXYTOCIN/SODIUM CHLORIDE 500 ML IV PRN (09:09)
[2023-10-22] MEDS ORDERED: miSOPROStoL 200 MCG TABLET BC PRN (09:09)
--- NOTE | 2023-10-22 09:18 | HISTORY & PHYSICAL EXAMINATION ---
Admit History - Visit Reason Visit Reason: Other - : 2 Parity: 0 Premature: 0 Ectopic: 0 : 1 Care: positive: [facility] Risk/History: positive: None Complications This : positive: None Smoking Status: Never smoker - Mother's Labs Mother's Blood Type: positive: O Mother's RH: positive: Positive GBS: positive: Group B Step Negative Rubella Status: positive: Non-immune - NST Procedure NST Procedure Start Time 17:19 Stop Time 17:49 NST reactive. FHR baseline 140, moderate variability, + accels, no decels Contractions palpate mild occasionally with soft resting tone Meds/Allgy - Home Medications Home Medications: Ambulatory Orders Medication Instructions Recorded Confirmed Pnv No.95/Ferrous Fum/Folic AC 1 cap PO DAILY 09/16/22 09/16/22 [ Tablet] Quetiapine Fumarate [Seroquel] 50 mg PO DAILY 09/16/22 09/16/22 lamoTRIgine [Lamictal] 200 mg PO DAILY 09/16/22 09/16/22 - Allergies Allergies/Adverse Reactions: Allergies Allergy/AdvReac Type Severity Reaction Status Date / Time No Known Drug Allergies Allergy Verified 03/02/23 21:29 Review of Systems - Constitutional Constitutional: denies: Fatigue, Fever, Malaise - Eyes Eyes: denies: Blurred vision, Spots in vision, Dipolpia - Cardiovascular Cariovascular: denies: Irregular heart rate, Palpitations, Chest pain, Edema - Respiratory Respiratory: denies: Cough, Wheezing, SOB at rest - Gastrointestinal Gastrointestinal: denies: Constipation, Diarrhea, Nausea, Vomiting - Genitourinary Genitourinary: denies: Dysuria, Frequency - Integumentary Integumentary: denies: Rash, Pruritis - Neurological Neurological: denies: Headache - All Other Systems All Other Systems: reports: Reviewed and negative Physical - Abdominal Exam Contraction Frequency (min/apart): occasional Contraction Intensity: positive: Mild Uterine Resting Tone: positive: Soft - Monitoring Heart Rate Baseline: 140 Strip Review: positive: Category I - Presentation Presentation: positive: Vertex - Vaginal Exam Membranes: positive: Membranes intact Dilation (in cm): 4 Effacement (%): 70 Station: positive: -3 Cervical Position: positive: Midposition - Speculum Exam Speculum Exam Performed: positive: No Plan for Labor - Plan For Labor I expect patient to be DC'd or transferred within 96 hours.: Yes Plan for Labor: HPI: This 22yo @ 41.1wks gestation by LMP c/w 6wk U/S presents to [facility] for medical induction of labor secondary to postdates . She had a cervical ripening balloon placed yesterday evening. She reports light brown spotting since placement of the balloon. Experiencing occasional contractions but was able to get some good sleep last night. Reports +FM. She has been a patient of [facility] for the duration of her which has remained uncomplicated. 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 She had negative genetic screening at 10wks with current . She will be admitted to [facility] for medical induction of labor with pre-induction cervical ripening. She is supported by her Edenilson today. Dating criteria: LMP 01/07/2023 Initial U/S @ 6wks c/w LMP dating Serial exams - agree G1: SAB 2012 - trisomy 18 positive G2: current Medical Hx: Anxiety, depression, bipolar disorder Surgical Hx: None Social Hx: Monogamous with male partner Edenilson. Stopped drinking alcohol due to . Denies current use of tobacco, marijuana or other recreational drugs. Hx of recreational tobacco and alcohol use. Reports that she is safe in current relationship. Currently not working. 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 Family Hx: Denies family history of congenital anomalies, Cystic Fibrosis or chromosomal abnormalities. Allergies: NKDA Medications: PNV, Quetiapine 75mg, Lamotrigine 150mg course: O positive, antibody negative Rubella non-immune; varicella non-immune RPRP non-reactive, HIV non-reactive Hep B neg, Hep C neg Initial U/S @ 6.0wks gestation c/w LMP dating Genetic screening- negative FAS: Single living intrauterine gestation with estimated sonographic gestational age of approximately 20 weeks and 1 day with estimated weight of 356 g (72nd percentile). Expected interval growth has occurred. Suboptimal visualization of the facial profile, four-chamber heart, and ventricular outflow tracts secondary to positioning throughout the examination. Completion anatomic survey normal Glucola - neg COVID vaccine x 2, no booster Tdap vaccine: 08/28/2023 Influenza vaccine: 09/12/2023 RSV vaccine: 09/12/2023 GBS negative Physical exam; Normocephalic, atraumatic Heart RRR w/o M/G/R LUngs CTAB Abdomen gravid, soft, nontender EFW 3500g FHR baseline 140s, moderate variability, + accels, no decels Contractions palpate mild intermittently with soft resting tone SVE 4/70/-3, vertex. Intact membranes Cervical ripening balloon removed and pt tolerated well. Bilateral LE's trace edema Mood is good. Assessment: 22yo @ 41.1wks gestation by LMP c/w 6wk U/S Postdates FHR Category I GBS neg Plan: Admit to [facility] for medical induction of labor secondary to postdates . 1 dose of 50mcg BC misoprostol now Initiate pitocin with titration per protocol 4 hours after misoprostol dose. Continuous monitoring. Jacuzzi PRN. Nitrous oxide PRN. Epidural per maternal request. Anticipate .
[2023-10-22 09:32] LABS: BASOPHILS % (AUTO) 0.2 %; EOSINOPHILS # (AUTO) 0.1 10^3/uL (0.0-0.7); EOSINOPHILS % (AUTO) 0.5 %; HCT - HEMATOCRIT 43.2 % (37.0-47.0); HGB - HEMOGLOBIN 14.5 g/dL (12.0-16.0); LYMPHOCYTES # (AUTO) 2.7 10^3/uL (1.5-3.5); LYMPHOCYTES % (AUTO) 24.8 %; MEAN CORPUSCULAR HEMOGLOBIN 31.5 pg (27.0-31.0); MEAN CORPUSCULAR HGB CONC 33.6 g/dL (32.0-36.0); MEAN CORPUSCULAR VOLUME 93.9 fL (81.0-99.0); MEAN PLATELET VOLUME 11.7 fL (7.9-10.8); MONOCYTES # (AUTO) 0.6 10^3/uL (0.0-1.0); MONOCYTES % (AUTO) 5.5 %; NEUTROPHILS # (AUTO) 7.5 10^3/uL (1.5-6.6); NEUTROPHILS % (AUTO) 68.1 %; PLT - PLATELET COUNT 230 10^3/uL (130-450); RED CELL DISTRIBUTION WIDTH 14.3 % (12.0-15.0)
[2023-10-22] MEDS: miSOPROStoL 100 MCG TABLET BC SCH (09:36)
[2023-10-22] MEDS: SODIUM CHLORIDE FLUSH 0.9% 10 ML SYRINGE IVP PRN (09:37)
[2023-10-22] MEDS: LACTATED RINGERS 1,000 ML IV SCH (14:50)
[2023-10-22] MEDS: OXYTOCIN/SODIUM CHLORIDE 500 ML IV SCH (14:50)
--- NOTE | 2023-10-22 19:27 | PROVIDER PROGRESS NOTE ---
Labor Progress Note - Uterine Monitoring Uterine Monitoring Mode: positive: External toco Contraction Frequency (min/apart): intermittent Contraction Intensity: positive: Mild Uterine Resting Tone: positive: Soft - Monitoring Monitor Mode: positive: External ultrasound Heart Rate Baseline: 140 Heart Rate Variability: positive: Moderate (6-25 bmp) Accelerations: positive: Present, 15x15 Decelerations: positive: None Strip Review: positive: Category I - Vaginal Exam Dilation (in cm): 5 Effacement (%): 70 Station: -2 Cervical Position: Midposition - Labor Progress Note Labor Progress Note/Additional Text: S: Patient bouncing on exercise ball. She feels contractions occasionally but reports they are mild and manageable. She is feeling them most significantly in her lower back. Her mood is good. Her Edenilson is supportive at the bedside. O: FHR baseline 140s, moderate variability, + accels, no decels Contractions palapte mild intermittently with soft resting tone SVE 5/70/-2, vertex. AROM at 1920 for a moderate amount of clear fluid Pitocin @ 10mU/mL A: 22yo @ 41.1wks gestation by LMP c/w 6.0wk U/S Postdates Medical IOL - early labor FHR Category I GBS negative P: Continue pitocin for induction of labor with titration per protocol. Continuous monitoring. Jacuzzi PRN. Nitrous oxide PRN. Epidural per maternal request. Anticipate .
[2023-10-22] MEDS: ONDANSETRON 4 MG/2 ML VIAL IVP PRN (20:27)
[2023-10-22] MEDS ORDERED: LIDOCAINE 2%-EPI 1:100000 20 ML MDV ONE (20:32)
[2023-10-22] MEDS ORDERED: ROPIVACAINE 0.2% 200 MG/100 ML BAG EP ONE (20:33)
[2023-10-22] MEDS ORDERED: ePHEDrine 50 MG/ML VIAL IVP PRN (21:10)
[2023-10-22] MEDS ORDERED: NALOXONE 0.4 MG/ML VIAL IVP PRN (21:10)
[2023-10-22] MEDS: LACTATED RINGERS 500 ML IV ONE (21:10)
--- NOTE | 2023-10-22 21:10 | ANESTHESIA ---
Pre-Anesthesia VS, & Labs - Diagnosis Active labor - Procedure induction of labor Vital Signs: Temp Pulse Resp BP Pulse Ox O2 Flow Rate 36.8 C 82 16 109/74 10/22/23 08:20 10/22/23 08:20 10/22/23 08:20 10/22/23 08:20 Height: 5 ft 3 in Weight (kg): 78.018 kg Body Mass Index: 30.4 BMI Classification: Obese - NPO Last Fluid Intake: clear liquids - Is Patient ?: Yes - Lab Results Current Lab Results: Laboratory Tests 10/22/23 08:42: WBC 11.0 H, RBC 4.60, Hgb 14.5, Hct 43.2, MCV 93.9, MCH 31.5 H, MCHC 33.6, RDW 14.3, Plt Count 230, MPV 11.7 H, Neut # (Auto) 7.5 H, Lymph # (Auto) 2.7, [place] # (Auto) 0.6, Eos # (Auto) 0.1, Baso # (Auto) 0.0, Absolute Nucleated RBC 0.00, Nucleated RBC % 0.0 10/22/23 08:42: Blood Type O POSITIVE, Antibody Screen NEGATIVE Lab results reviewed: Yes Fish Bones: 10/22/23 08:42 Home Medications and Allergies Active Medications Carboprost Tromethamine (Carboprost Tromethamine 250 Mcg/Ml Vial) 250 mcg IM Q15M PRN PRN Reason: Step 4: Hemorrhage protocol Oxytocin/Sodium Chloride (Pitocin/Sodium Chloride) 500 mls @ 999 mls/hr IV PRN PRN; Protocol PRN Reason: POST- HEMORR PREVENTION Stop: 10/27/23 09:10 Tranexamic Acid (Tranexamic 1,000 Mg/100ml-Nacl) 1,000 mg in 100 mls @ 600 mls/hr IV .ONCE PRN PRN Reason: EBL >1200mL and within 3hr Stop: 10/27/23 09:10 Oxytocin/Sodium Chloride (Pitocin/Sodium Chloride) 500 mls @ 2 mls/hr IV TITR BRIDGER; Protocol Last Titration: 10/22/23 17:46 Dose: 8 milliunit/min, 8 mls/hr Lactated Ringer's (Lr) 1,000 mls @ 125 mls/hr IV .Q8H BRIDGER Last Admin: 10/22/23 14:50 Dose: 125 mls/hr Lidocaine HCl (Lidocaine 1% 20 Ml Mdv) 20 ml ID .ONCE PRN PRN Reason: PERINEAL REPAIR Stop: 10/27/23 09:10 Methylergonovine Maleate (Methylergonovine 0.2 Mg/Ml Vial) 0.2 mg IM .ONCE PRN PRN Reason: Step 2: Hemorrhage protocol Stop: 10/27/23 09:10 Misoprostol (Misoprostol 200 Mcg Tablet) 800 mcg BC .ONCE PRN PRN Reason: Step 3: Hemorrhage protocol Stop: 10/27/23 09:10 Misoprostol (Misoprostol 100 Mcg Tablet) 50 mcg BC Q4HR [facility] Last Admin: 10/22/23 09:36 Dose: 50 mcg Ondansetron HCl (Ondansetron 4 Mg/2 Ml Vial) 4 mg IVP Q4HR PRN PRN Reason: Nausea / Vomiting Oxytocin (Oxytocin 10 Unit/Ml Vial) 10 unit IM .ONCE PRN PRN Reason: Step one: If no IV access Stop: 10/27/23 09:10 Sodium Chloride (Sodium Chloride Flush 0.9% 10 Ml Syringe) 10 ml IVP 0100,090 0,1700 [facility] Sodium Chloride (Sodium Chloride Flush 0.9% 10 Ml Syringe) 10 ml IVP PRN PRN PRN Reason: NEEDED PER PROVIDER ORDERS Last Admin: 10/22/23 09:37 Dose: 3 ml Pnv No.95/Ferrous Fum/Folic AC [ Tablet] 1 cap PO DAILY 09/16/22 Quetiapine Fumarate [Seroquel] 50 mg PO DAILY 09/16/22 lamoTRIgine [Lamictal] 200 mg PO DAILY 09/16/22 Allergies/Adverse Reactions: Allergies Allergy/AdvReac Type Severity Reaction Status Date / Time No Known Drug Allergies Allergy Verified 03/02/23 21:29 Anes History & Medical History - Anesthetic History Family history of Anesthesia Complications: Denies Family history of Malignant Hyperthermia: Denies - Medical History Cardiovascular: reports: None Pulmonary: reports: None Gastrointestinal: reports: None Urinary: reports: None Neuro: reports: None Musculoskeletal: reports: None Endocrine/Autoimmune: reports: None Blood Disorders: reports: None Skin: reports: None Smoking Status: Never smoker Psychosocial: reports: No issues indicated History of Cancer?: No - Obstetrical History : 2 Parity: 0 Events: reports: None Complications: reports: None Exam General: Alert Dental: WNL Mouth Openin Fingerbreadth Neck Mobility: Normal Mallampati classification: II Thyromental Distance: 4-6 cm Mental/Cognitive Status: Alert/Oriented X3, Normal for patient Plan Anesthesia Type: Epidural Consent for Procedure(s) Verified and Reviewed: Yes Code Status: Attempt Resuscitation ASA classification: 2-Mild systemic disease Is this case an emergency?: No
[2023-10-23] MEDS: ROPIVACAINE 0.2% 200 MG/100 ML BAG EP PRN (03:32)
[2023-10-23] MEDS: AMPICILLIN 2 GM in SODIUM CHLORIDE 0.9% MINIBAG 100 ML IV SCH (05:33)
--- NOTE | 2023-10-23 05:45 | PROVIDER PROGRESS NOTE ---
Labor Progress Note - Uterine Monitoring Uterine Monitoring Mode: positive: External toco Contraction Frequency (min/apart): 2-4 Contraction Intensity: positive: Strong Uterine Resting Tone: positive: Soft - Monitoring Monitor Mode: positive: External ultrasound Heart Rate Baseline: 130 Heart Rate Variability: positive: Moderate (6-25 bmp) Accelerations: positive: Present, 15x15 Decelerations: positive: Early Strip Review: positive: Category I - Vaginal Exam Dilation (in cm): 9 Effacement (%): 100 Station: 1 Cervical Position: Anterior - Labor Progress Note Labor Progress Note/Additional Text: S: Patient feeling significant pressure in her lower back and buttocks during contractions. She is feeling intermittently cold and then hot. She was able to get a little sleep throughout the night. She reports feeling initially very comfortable with the epidural in place but is now feeling like she is starting to get her sensation back specifically in her upper thighs. She was able to feel a cervical exam and has not been able to get comfortable enough to rest during contractions for approximately the past 45 minutes. O: FHR baseline 130s, moderate variability, + accels, occasional early decels Pitocin at 5mU/mL Pt has developed intrapartum fever of 38.6 in addition to maternal tachycardia SVE 9/100/+1 A: 22yo @ 41.2wks gestation by LMP c/w 6.0wk U/S Intrapartum infection Postdates Active labor AROM x 10hrs P: Initiate ampicillin and gentamycin per protocol for treatment of intrapartum infection. Continue pitocin for induction of labor with titration per protocol. Positioned in bed on peanut ball to promote decent and complete dilation. Anesthesia notified and presence requested to evaluate patient pain level. Continuous monitoring Anticipate .
--- NOTE | 2023-10-23 05:59 | ANESTHESIA PROCEDURE NOTE ---
Anesthesia Epidural Template - Patient Report Patient Reports: positive: Inadequate control - Plan Plan: positive: Other - Other Comments Other Comments: Called to evaluate epidural. Pt reports she has had good pain relief but now feels pain in back and perineum. Epidural dosed with 5ml of 2% lidocaine,100mcg fentanyl and 3ml of PF NS. Epidural drip increased to 12ml every 45 mins PIEB. After bolus, she reports improved pain control.
[2023-10-23] MEDS ORDERED: ROPIVACAINE 0.2% 200 MG/100 ML BAG EP PRN (06:00)
[2023-10-23] MEDS: diphenhydrAMINE INJ 50 MG/ML VIAL IVP PRN (06:03)
[2023-10-23] MEDS ORDERED: SODIUM CHLORIDE 0.9% 100ML 100 ML IV ONE (06:05)
[2023-10-23] MEDS ORDERED: GENTAMICIN 80 MG/2 ML VIAL ONE (06:10)
[2023-10-23] MEDS: ACETAMINOPHEN 500 MG TABLET PO PRN ×2 (06:32→14:41)
[2023-10-23] MEDS: SODIUM CHLORIDE 0.9% IV SCH (06:38)
[2023-10-23] MEDS: GENTAMICIN PER PHARMACY IV SCH (06:38)
[2023-10-23] MEDS ORDERED: GENTAMICIN 80 MG/2 ML VIAL IV SCH (07:00)
[2023-10-23] MEDS: lidocaine 1% 20 ML MDV ID PRN (09:34)
[2023-10-23] MEDS ORDERED: WITCH HAZEL/GLYCERIN 1 PAD TOP PRN (10:14)
[2023-10-23] MEDS ORDERED: HYDROCORTISONE 1% CREAM 28 GM TUBE PR PRN (10:14)
--- NOTE | 2023-10-23 10:29 | DELIVERY NOTE ---
Delivery Note - Labor Labor: positive: Augmented by ARM, Induced by oxytocin - Delivery Method Infant Delivery Method: positive: Spontaneous vaginal delivery - Cervical Ripening Method Cervical Ripening Method: positive: Balloon device, Misoprostil - Presentation Presentation: positive: Vertex, BAKARI - right occiput anterior - Nuchal Cord Nuchal Cord: positive: None - Amniotic Fluid Description Amniotic Fluid Description: positive: Thick meconium - Episiotomy Type Episiotomy Type: positive: None - Laceration Laceration: positive: 1st degree, Periurethral, Sulcus - Suture Suture Type: positive: Vicryl Suture Size: positive: 3-0, 4-0 - Delivery Outcome Delivery Outcome: positive: Livebirth - : positive: Placed in direct skin contact with mother, Suctioned, Bulb syringe, Stimulated, Warmed, [place] used, Warmer used sex: positive: Male - Cord Cord: positive: 3 vessels - Placenta Placenta: positive: Intact, Spontaneous - Estimated Blood Loss Estimated Blood Loss (in cc): 236 (QBL) - Post Delivery Events Post Delivery Events: positive: No post delivery events - Delivery Comments (Free Text/Narrative) Delivery Comments (Free Text/Narrative): Labor: This 22yo @ 41.2wks gestation by LMP c/w 6.0wk U/S presented to [facility] on 10/22/2023 for medical induction of labor for postdates . She initially had a cervical ripening balloon in place which was removed upon arrival and cervix was noted to be 4/70/-3 and vertex with intact membranes. She received 1 dose of 50mcg BC misoprostol for pre-induction cervical ripening. Pitocin was initiated for induction of labor with a maximum infusion rate of 10mU/mL. AROM occurred at 1920 and was noted to be a moderate amount of clear fluid. FHR pattern demonstrated a Category I pattern with intermittent periods of Category II throughout labor however overall remained reassuring. Epidural was placed per maternal request. Pt developed tachycardia followed epidural placement with 38.6 temperature shortly after. She was treated per protocol with Ampicillin and Gentamycin and was also given Acetaminophen and temperature resolved. Pt progressed to pushing 0718 with slight anterior lip and was then noted to be c/c/0 at 0722. : Normal SVB of viable male infant on 10/23/2023 @ 0924. Thick meconium amniotic fluid was noted after delivery of head which was not noted prior to delivery. The was placed on maternal abdomen, stimulated and dried. The umbilical cord was allowed to pulsate x 60 seconds at which time it was doubly clamped by CNM and cut by FOB and was moved to infant warmer for suctioning secondary to poor respiratory effort and thick meconium at time of delivery. Apgars were 7/9 at 1 and 5 minutes respectively. 3VC. Cord blood was obtained. Fundal massage and gentle cord traction applied for active management of the third stage. Placenta delivered spontaneously and intact at 0929. QBL 236mL. Fourth stage: Uterine fundus firm and there is no excessive bleeding. The perineum, vagina, and cervix were inspected and found to have 1st degree periurethral laceration which was repaired using a 4-0 vicryl on an SH needle in standard fashion and under sterile conditions. In addition she was noted to have a 1st degree right vaginal sulcus laceration which was repaired with 1 interrupted stitch using a 3-[address]-1 needle in standard fashion and under sterile conditions. Vaginal examination followed repair was performed. Tissues well approximated. Skin to skin contact initiated. Family bonding well. Both mother and baby were left in stable condition.
[2023-10-23] MEDS: SODIUM CHLORIDE FLUSH 0.9% 10 ML SYRINGE IVP SCH (11:14)
[2023-10-23] MEDS: SODIUM CHLORIDE 0.9% 100ML 100 ML IV ONE (11:16)
--- NOTE | 2023-10-23 11:18 | PHARMACY PROGRESS NOTE ---
- Best Possible Medication History Admit Date and Time: 10/22/23 0908 Processed by: Nursing Medications reviewed in ED?: No Medication History completed: Yes Patient Interview: Completed As the person ultimately responsible for medication therapy, providers are able to order a medication from an existing home medication list in [facility] via the "Reconcile Routine" prior to Confirmation of that medication by program support assistant. Such practice is discouraged except when the physician, in their clinical judgment, deems that a medical need exists for a medication without regard to previous use.
[2023-10-23] MEDS: IBUPROFEN 800 MG TABLET PO SCH (12:06)
[2023-10-23] MEDS ORDERED: lamoTRIgine 100 MG TABLET PO SCH (21:00)
[2023-10-23] MEDS: DOCUSATE SODIUM 100 MG CAPSULE PO SCH (21:05)
[2023-10-23] MEDS: QUEtiapine 25 MG TABLET PO SCH (21:05)
[2023-10-23] MEDS: lamoTRIgine 100 MG TABLET PO SCH (21:06)
[2023-10-24] MEDS ORDERED: SODIUM CHLORIDE 0.9% IV SCH (06:00)
[2023-10-24] MEDS ORDERED: GENTAMICIN IV SCH (06:00)
[2023-10-24] MEDS ORDERED: lamoTRIgine 100 MG TABLET PO SCH (09:00)
[2023-10-25 08:21] VITALS: BP 114/77; O2SAT 98
--- NOTE | 2023-10-25 11:37 | Discharge Plan ---
Discharge Plan Problem Reviewed?: Yes Disposition: Home, Self Care Condition: Good Diet: Regular Activity Restrictions: No Restrictions Shower Restrictions: No Driving Restrictions: No Weight Bearing: Full Weight Instruction Topics: Vaginal After, Breastfeed Holds, Breastmilk Expressing, Nutrition , Self Care No Smoking: If you smoke, Please STOP! Call for help. Follow-up with: Jacquie Cool CNM, EDWIN [Provider Admit Priv/Credential] - 1 Week
--- NOTE | 2023-10-25 11:48 | DISCHARGE SUMMARY ---
Discharge Summary Condition at Discharge: Good Discharge Disposition: 01 Home, Self Care - HOSPITAL COURSE Hospital Course: Date of Admission: 10/22/2023 Date of Discharge: 10/25/2023 Diagnosis on Admission: 1. 22yo @ 41.1wks gestation 2. Postdates 3. GBS negative 4. FHR Category I Diagnosis on Discharge: 1. 22yo PPD#2 s/p TSVB viable male 2. 3. Normal recovery Brief History: [facility] on [facility] for medical induction of labor secondary to postdates . She had a cervical ripening balloon in place prior to her arrival and it was removed followed by administration of 50mcg BC misoprostol for effective pre-induction cervical ripening. Pitocin was initiated for induction of labor with titration per protocol and a maximum infusion rate of 10mU/mL. Epidural placed per maternal request. She progressed to spontaneously deliver a viable male on 10/23/2023 @ 0924 with thick meconium after delivery noted. Apgars were 7/9 at 1 and 5 minutes respectively. QBL 236mL. Perineum intact, 1st degree periurethral and 1st degree right vaginal sulcus lacerations repaired in standard fashion and under sterile conditions. She has been doing well in her course. She is ambulating and tolerating a regular diet. She is urinating without difficulty and her lochia is normal. Her pain is well controlled with oral medications. She is without difficulty and she is bonding well with her baby. She will be discharged home today on day #2 with instructions to continue taking her vitamin while and continue taking ibuprofen and tylenol over the counter as needed for pain management. She is currently taking quetiapine and lamotrigine for bipolar depression/anxiety and is currently well controlled. WE discussed her increased risk of anxiety and depression and she is aware and her partner is as well. We reviewed warning s/sx and when to call or present. She intends to follow up with myself in 1 week for routine visit or sooner if needed. She has been given precautions to call if she has any worsening fevers, chills, abdominal pain, increased vaginal bleeding or foul smelling vaginal lochia. Physical exam: Normocephalic, atraumatic. Heart RRR w/o M/G/R, lungs CTAB, abdomen soft and non tender with fundus firm and U-1, perineum intact, light lochia rubra. Bilateral LE's no edema. Mood is good. - ALLERGIES Allergies/Adverse Reactions: Allergies Allergy/AdvReac Type Severity Reaction Status Date / Time No Known Drug Allergies Allergy Verified 03/02/23 21:29 - MEDICATIONS Home Medications: Ambulatory Orders Medication Instructions Recorded Confirmed Pnv No.95/Ferrous Fum/Folic AC 1 cap PO DAILY 09/16/22 10/22/23 [ Tablet] Quetiapine Fumarate [Seroquel] 50 mg PO DAILY 09/16/22 10/22/23 lamoTRIgine [Lamictal] 200 mg PO DAILY 09/16/22 10/22/23 - LABS Result Diagrams: 10/22/23 08:42
--- NOTE | 2023-10-25 11:50 | PROVIDER PROGRESS NOTE ---
Subjective - Subjective Subjective: S: Bonding well with her baby. She is without difficulty and her lochia is normal. Her pain is well controlled with oral medications. She reports the increased pressure on her rectum that occurred shortly after delivery has gradually improved and she is able to sit much more comfortably now. Her Edenilson is supportive at the bedside. O: Normocephalic, atraumatic. Heart RRR w/o M/G/R, lungs CTAB, abdomen soft and nontender with fundus firm and U, perineum intact, light lochia rubra. Bilateral LE's no edema. Mood is good. A: 22yo PPD#1 s/p TSVB viable male infant Normal recovery P: Continue routine care and medications. Evaluate for discharge home tomorrow. Objective - Vital Signs/Intake & Output Vital Signs: Vital Signs x48h Temp Pulse Resp BP Pulse Ox 10/25/23 08:00 37.1 C 87 15 114/77 98 Intake & Output: Intake & Output 10/22/23 10/23/23 10/24/23 10/25/23 23:59 23:59 23:59 23:59 Intake Total 2011.700 2188.710 120 Output Total 750 Balance 2011.700 1438.710 120 - Lab Results Fish Bones: 10/22/23 08:42
--- NOTE | 2023-10-25 13:58 | Labor Flowsheet ---
Labor Flowsheet Datetime Report Generated by CPN: 10/25/2023 13:58 Datetime: 10/25/2023 07:49 VITAL SIGNS NBP Sys/Deidre/Mean (mmHg): 114 : 77 : 85 Pulse: 88 Datetime: 10/25/2023 03:34 SpO2 (%): 99 Datetime: 10/23/2023 10:05 COMMUNICATION Communication: Provider at Bedside Provider Notified (Name): Jacquie Silvina, CNM UTILITY ACCOUNTS DIRECTOR Communication Comments: Provider on unit from 0500 through present, in continuous review of EFM. Datetime: 10/23/2023 10:00 I/O Interventions: Straight Cath (ml) @ 100 Datetime: 10/23/2023 09:58 Stage 2 Comments: repair complete Datetime: 10/23/2023 09:35 Stage of : Recovery Datetime: 10/23/2023 09:34 Medication Comments: PP pit started Datetime: 10/23/2023 09:30 LaborFlag: Labor Datetime: 10/23/2023 09:23 FHR Baseline Rate : 210 Datetime: 10/23/2023 09:15 ASSESSMENT A Monitor Mode: External US Variability: Marked >25 bpm Accelerations: None Decelerations: None Category: Category II Datetime: 10/23/2023 09:00 UTERINE ACTIVITY Monitor Mode: Palpation Frequency (min): 2-3 Quality: Strong Duration (sec): 60-90 Pattern: Normal: <= 5 Contractions in 10 Minutes Resting Tone (Palpate): Relaxed Contraction Comments: TOCO removed, unable to trace; palpation during pushing efforts Datetime: 10/23/2023 08:20 Comments: during accel Datetime: 10/23/2023 08:13 Membranes Ruptured Date/Time: 10/22/2023 19:18 Amniotic Fluid Odor: Normal Datetime: 10/23/2023 07:59 Pushing Progress: Presenting Part Visible; Pushing Effectively with Contractions Datetime: 10/23/2023 07:22 VAGINAL EXAM Dilatation (cm): 10.0 Datetime: 10/23/2023 07:19 Exam by: A. Silvina, CNM Vaginal Exam Comments: complete Datetime: 10/23/2023 07:18 Pushing Position: Pushing with Contractions Datetime: 10/23/2023 07:06 Temperature (C): 38.3 Datetime: 10/23/2023 07:04 Patient Position/Activity: Right Extreme; Low Fowlers Patient Care Comments: peanut ball Datetime: 10/23/2023 07:00 MEDICATIONS Pitocin (milliunits): Increased to @ 9 Datetime: 10/23/2023 06:45 Pitocin Checklist: At Least 1 Acceleration of 15 bpm x 15 Seconds in 30 Minutes or Adequate Variabi lity; No More than 1 Late Deceleration Occurred in Past 30 Minutes; No More than 2 Variable Decelerat ions > 60 Seconds in Duration and decreasing >60 bpm in 30 minutes; No More than 5 Uterine Contractio ns in 10 Minutes for any 20 Minute Interval; Uterus Palpates Soft between Contractions Datetime: 10/23/2023 06:39 Antibiotics: Gentamicin IV (mg) @ 390 Datetime: 10/23/2023 06:30 Analgesics/Sedatives: Tylenol (mg) @ 1000 Antiemetics/Antacids: Zofran (mg) @ 4 Datetime: 10/23/2023 06:15 Monitor Interventions for UA: [place] Adjusted Datetime: 10/23/2023 05:38 PAIN Pain Scale: 6 Datetime: 10/23/2023 05:15 Actions for Decelerations: Other Datetime: 10/23/2023 05:02 Pain Assessment Comments: pt reports feeling a lot of pressure Datetime: 10/23/2023 05:00 STAGE 2 Pushing: Coached on Pushing Datetime: 10/23/2023 04:35 Station: 0 Vaginal Bleeding: Scant Cervix, Consistency: Soft Cervix, Position: Midposition Position 'A': Right Occipital Transverse Datetime: 10/23/2023 03:41 PATIENT CARE IV/Blood Work: IV Bolus Given ml @ 250 Datetime: 10/23/2023 01:27 Vital Sign Comments: radial pulse accurate with monitor reading Datetime: 10/23/2023 00:37 Notification Reason: Status Update Datetime: 10/23/2023 00:26 Effacement (%): 100 Datetime: 10/22/2023 23:37 MATERNAL ASSESSMENT Nausea/Vomiting: Present Datetime: 10/22/2023 22:30 FHR Baseline Changes: No Baseline Change Datetime: 10/22/2023 20:58 Epidural Procedure: Completed Datetime: 10/22/2023 20:40 PROCEDURE TIME OUT Procedure Verify: Correct Patient Position Datetime: 10/22/2023 20:37 ANESTHESIA Anesthesia Plans: Epidural Epidural Positioning: Sitting Datetime: 10/22/2023 19:18 Membrane Status: Ruptured Membranes Rupture Method: Artificial Amniotic Fluid Color: Heavy Meconium Amniotic Fluid Amount: Small Datetime: 10/22/2023 17:47 Respirations: 16 Temperature Route: Oral Pain Presence: Intermittent Pain Type: Cramping Pain Location: Abdomen; Back Pain Relief Measures: Comfort Measures Pain Coping: Talking Through Contractions Datetime: 10/22/2023 09:36 Cervical Ripening Agents: Drummond Balloon; Cytotec @
== END 2023-10-25 13:45 | disposition home or self-care (01) | DRG 806 ==
LOC: WFO 07:49 → FBP 07:50 → WFO 09:08 → FBP 09:08
PROVIDERS: ADMIT Nurse Practitioner Obstetrics & Gynecology; ATTEND Nurse Practitioner Obstetrics & Gynecology
PROC: 3E033VJ Introduction of Other Hormone into Peripheral Vein, Percutaneous Approach (ICD-10-PCS; 2023-10-22)
PROC: 3E0DXGC Introduction of Other Therapeutic Substance into Mouth and Pharynx, External Approach (ICD-10-PCS; 2023-10-22)
PROC: 10E0XZZ Delivery of Products of Conception, External Approach (ICD-10-PCS; principal; 2023-10-23)
PROC: 0UQMXZZ Repair Vulva, External Approach (ICD-10-PCS; 2023-10-23)
PROC: 0UQGXZZ Repair Vagina, External Approach (ICD-10-PCS; 2023-10-23)
DX: O48.0 Post-term pregnancy (principal); O71.4 Obstetric high vaginal laceration alone; Z37.0 Single live birth; Z3A.41 41 weeks gestation of pregnancy; O77.0 Labor and delivery complicated by meconium in amniotic fluid; O71.82 Other specified trauma to perineum and vulva; O99.344 Other mental disorders complicating childbirth; F31.9 Bipolar disorder, unspecified; F41.9 Anxiety disorder, unspecified; Z79.899 Other long term (current) drug therapy; O76 Abnormality in fetal heart rate and rhythm complicating labor and delivery
CPT/HCPCS: 36415; 59409; 85025; 86850; 86900; 86901; A9270; J1200; J7120

== ENCOUNTER 2025-05-30 10:47 | Observation (INO) ==
[2025-05-30] MEDS ORDERED: ceFAZolin (2G) 2 GM in SODIUM CHLORIDE 0.9% MINIBAG 100 ML IV ONE (10:56)
[2025-05-30] MEDS ORDERED: ACETAMINOPHEN 1,000 MG/100 ML 1,000 MG/100 ML BAG IV ONE ×2 (10:56→10:58)
--- NOTE | 2025-05-30 11:12 | ANESTHESIA PROCEDURE NOTE ---
Pre-Anesthesia VS, & Labs Diagnosis Surgical Diagnosis:: Graves disease Procedure Procedure: total thyroidectomy Vitals Vital Signs: Temp Pulse Resp BP Pulse Ox 36.9 C 84 17 121/85 100 05/30/25 11:30 05/30/25 11:30 05/30/25 11:30 05/30/25 11:30 05/30/25 11:30 NPO NPO: >8 hours Is Patient ?: No Lab Results Lab results reviewed: Yes Meds/Allgy Home Medications Ambulatory Orders Medication Instructions Recorded Confirmed methimazole 15 mg tablet 15 mg PO QDAY 03/15/2505/29 Allergies Allergies Allergy/AdvReac Type Severity Reaction Status Date / Time No Known Drug Allergies Allergy Verified 05/30/25 11:05 PFSH Active Problems All Active Problems (Updated 05/25/25 @ 10:20 by Mary Ann Hayes RN) Vaginal pain (Acute) Medical History Medical History (Updated 05/25/25 @ 10:20 by Mary Ann Hayes RN) History of posttraumatic stress disorder (PTSD) History of claustrophobia Hx of bipolar disorder Asthma Depression Anxiety Graves disease Nausea Vaginal delivery Surgical History Surgical History (Updated 05/25/25 @ 10:21 by Mary Ann Hayes RN) Hx of colonoscopy Family History Family History Mother Cervical cancer Asthma Maternal grandfather Diabetes Heart problem Colon cancer Maternal grandmother Cancer Social History Social History (Updated 05/25/25 @ 10:21 by Mary Ann Hayes RN) Smoking Status: Never smoker Do you dip or chew tobacco?: No Do you vape?: No Do you feel safe in your home environment?: Yes History of physical, verbal, emotional, or financial abuse?: No ETOH Use: Wine Frequency: Occasional ETOH - Additional Notes: 1-2 month Substance Use: cannabis (any form) Substance Use Details: smokes 4 times week POLST Patient has POLST: No Anesthesia Exam (Expanded) Exam General: Alert, Oriented x3 and Cooperative Dental: WNL Mouth Openin Fingerbreadth Neck Mobility: Normal Thyromental Distance: 4-6 cm Respiratory: Normal breath sounds Cardiovascular: Regular rate Neurological: Normal speech Mental/Cognitive Status: Alert/Oriented X3 and Normal for patient Cognitive Status: Within normal limits Exam Exam Vital Signs: Vital Signs x48h Temp Pulse Resp BP Pulse Ox 05/30/25 11:30 36.9 C 84 17 121/85 100 Plan Plan Anesthesia Type: General Consent for Procedure(s) Verified and Reviewed: Yes Code Status: Attempt Resuscitation ASA Classification ASA classification: 2-Mild systemic disease Is this case an emergency?: No
[2025-05-30] MEDS ORDERED: PROPOFOL 200 MG/20 ML VIAL IVP ONE ×2 (11:16→19:15)
[2025-05-30] MEDS ORDERED: LIDOCAINE-PF 2% 10 ML AMP SUBQ ONE ×2 (11:16→19:15)
[2025-05-30] MEDS ORDERED: ROCURONIUM 50 MG/5 ML VIAL ONE ×2 (11:17→20:43)
[2025-05-30] MEDS: LACTATED RINGERS 1,000 ML IV PRN (11:44)
[2025-05-30] MEDS ORDERED: BUPIVACAINE 0.5%-EPI 1:200000 PF 10 ML VIAL ONE ×2 (11:54→21:08)
[2025-05-30] MEDS ORDERED: METHYLENE BLUE 0.5% 50 MG/10 ML AMPULE ONE (11:54)
[2025-05-30 11:59] LABS: HCG UR QUAL NEGATIVE
[2025-05-30] MEDS ORDERED: fentaNYL 100 MCG/2 ML VIAL IVP PRN (12:11)
[2025-05-30] MEDS ORDERED: ATROPINE ABBOJECT 1 MG/10 ML SYRINGE IVP PRN (12:11)
[2025-05-30] MEDS ORDERED: NALOXONE 0.4 MG/ML VIAL IVP PRN (12:11)
[2025-05-30] MEDS ORDERED: MORPHINE 2 MG/ML CARPUJECT IVP PRN (12:11)
[2025-05-30] MEDS ORDERED: METOCLOPRAMIDE 10 MG/2 ML VIAL IVP PRN (12:11)
[2025-05-30] MEDS ORDERED: ePHEDrine 50 MG/ML VIAL IVP PRN (12:11)
[2025-05-30] MEDS ORDERED: fentaNYL 100 MCG/2 ML VIAL ONE ×5 (12:14→22:56)
[2025-05-30] MEDS ORDERED: MIDAZOLAM 2 MG/2 ML VIAL ONE ×4 (12:14→22:55)
--- NOTE | 2025-05-30 12:40 | Preop H&P Attestation ---
Preop H&P Attestation Preop History & Physical H&P must be within last 30 days.: The patient was reevaluated in Room 8 of [facility]'s personal care assistant unit and the indication and history were reviewed with the patient and her . The patient's questions were answered. The patient was re-examined and there are no substantive changes. The operative site was positively identified. The patient and I reconfirmed the upcoming procedure and consent. The postoperative instructions were reiterated and answered any and all questions that they had. Preop H&P Date: 05/18/25
[2025-05-30] MEDS ORDERED: PHENYLEPHRINE HCL 0.5 MG/5 ML AMPULE ONE ×3 (12:58→20:58)
[2025-05-30] MEDS ORDERED: LACTATED RINGERS 1,000 ML IV SCH (13:00)
[2025-05-30] MEDS ORDERED: ONDANSETRON 4 MG/2 ML VIAL ONE ×2 (13:01→16:45)
[2025-05-30] MEDS ORDERED: DEXAMETHASONE 4 MG/ML VIAL ONE (13:01)
[2025-05-30] MEDS ORDERED: METOPROLOL 5 MG/5 ML VIAL IVP ONE (13:09)
[2025-05-30] MEDS ORDERED: SUGAMMADEX 200 MG/2 ML VIAL IVP ONE ×2 (13:40→19:26)
[2025-05-30] MEDS ORDERED: HYDROmorphone 1 MG/ML CARPUJECT ONE (15:00)
[2025-05-30] MEDS ORDERED: HYDROmorphone 0.5 MG/0.5 ML SYRINGE ONE (16:45)
[2025-05-30] MEDS: ONDANSETRON 4 MG/2 ML VIAL IVP PRN ×2 (16:46→18:59)
[2025-05-30] MEDS: HYDROmorphone 0.5 MG/0.5 ML SYRINGE IVP PRN ×2 (16:46→18:41)
--- NOTE | 2025-05-30 16:58 | ANESTHESIA POST OP EVALUATION ---
Anesthesia Post Eval Post Anesthesia Eval Vitals: Last Vital Signs Temp 36.6 C 05/30/25 16:30 Pulse 102 H 05/30/25 16:45 Resp 21 05/30/25 16:45 BP 118/74 05/30/25 16:45 Pulse Ox 96 05/30/25 16:45 O2 Flow Rate 05/30/25 16:35 CV Function Including HR & BP: Stable Pain Control: Satisfactory Nausea & Vomiting: Negative Mental Status: Baseline Respiratory Status: Airway Patent Hydration Status: Satisfactory Anesthesia Complications: None
--- NOTE | 2025-05-30 17:28 | OPERATIVE REPORT ---
Operative Report General Procedure Data: Operation Date: 05/30/25 12:00 Proposed Procedures p Thyroidectomy(Not Applicable) - Kiran Dan MD Actual Procedures p Total Thyroidectomy(Not Applicable) - Kiran Dan MD Pre-Op Diagnosis: GRAVES DISEASE Anesthesia Type General Case Staff Anesthesia Provider: [place]an Anesthesia Provider: Kvng Betancourt Assisting Provider: Puneet Espinoza Case Times Into Recovery: 05/30/25 16:27 Procedure Start: 05/30/25 13:23 Procedure End: 05/30/25 16:20 Time out: 05/30/25 13:22 Other Other Information/Narrative: Patient Name: Zay Ornelas Patient date: 2000 Patent MR number: [id number] Date of procedure: 05/30/2025 Preoperative Diagnosis/Indications: Graves' disease with desire for thyroidectomy Postoperative Diagnosis: Graves' disease with desire for thyroidectomy Procedure: Total thyroidectomy CPT 71753 Fluids: 1200 mL EBL: 40 mL Urine output: Not measured Drains: None Findings: Normal-sized thyroid somewhat adherent to surrounding tissues Complications: None Surgeon/Dictated by: Kiran Dan MD Clinical Support Associate: Kristy Espinoza MD Bass Singer: North Beltran CRNA followed by Kvng Singh CRNA Anesthesia type: General Endotracheal +10 mL half percent Marcaine with epinephrine Procedure: After verbal and written informed consent was obtained detailing the operation, the alternatives the operation including no operation, risks of infection, bleeding requiring transfusion with its risks, nerve injury, and and after I met with the patient confirming the surgery and the site of surgery, the patient was brought to the operative suite and placed supine on the operating table. Great care was taken to avoid pressure points to prevent pressure necrosis or nerve injury. Monitoring devices were applied along with TEDs and pneumatic compression stockings (to prevent DVT). An intravenous line was started and anesthesia was maintained throughout the case. The patient was monitored for cardiac, blood pressure, and oxygen saturation continuously. The patient received preoperative antibiotics for surgical prophylaxis. [place]an CRNA sedated and anesthetized the patient for the entire procedure. The patient was prepped and draped in the usual sterile manner. With the patient draped my initials were clearly visible. A "time in" then confirmed that the patient was identified with 3 identifiers (name, date, and medical record number), the history and physical was updated and in the chart, the signed consent confirming the procedure was in the chart, the patient was in the correct position, the aforementioned prophylactic measures were in place or given, we had the correct personnel and equipment to complete the procedure and that anesthesia and the surgical team were given an opportunity to express any concerns. With the agreement of everyone in the room we proceeded with the operation. A curvilinear incision was made in the patient's neck corresponding with a normal crease approximately 2 cm superior to the clavicular head. This incision was taken down to the platysma muscle. The platysma was incised using Bovie electrocautery. Superior and inferior flaps were then raised using finger dissection. Small superficial veins were seen and avoided. The fascia of the sternohyoid muscle was grasped bilaterally and opened at the midline using Bovie electrocautery. The dissection continued past the sternal thyroid muscle onto the thyroid. Once the thyroid was clearly seen Spring retractors, Army-[place]'s and green retractors were used to keep the muscle clear from the area of dissection without incising the muscle. The anterior surface of the thyroid was cleared of adhesions using blunt dissection. I first approached the left thyroid. This was taken laterally until the thyroid itself could be reflected up. The thyroid was reflected up and the middle thyroidal vein was sacrificed using the LigaSure. The superior aspect of the thyroid was then mobilized again using blunt dissection where applicable but there was some dense adhesions of the thyroid to the surrounding tissues and this had to be taken down with a peanut as well as careful Bovie electrocautery. Once the superior pole was identified this was ligated twice with a 3-0 silk tie and a clip was placed on the superior attachments. The attachments were then transected using Metzenbaum scissors thus freeing up the superior pole. Additional adhesions were taken down using primarily blunt dissection. Dissection of the thyroid proceeded then from superior to inferior making every effort to identify and avoid the recurrent laryngeal nerve. We looked extensively but the nerve was not identified with any degree of certainty during this case. The left inferior parathyroid unfortunately was devascularized and freed up with the inferior pole but kept to be reimplanted later in the case. I marked this with a small clip. The inferior pole was then similarly freed to the superior pole and in such manner the thyroid was rolled up off of the trachea. Great care was taken to remain on the thyroid itself. In several areas where there was a question whether or not injury in the area of the nerve could occur I opted to leave some small amount of thyroid tissue behind. Once the midline was reached the dissection switched to the patient's right-hand side. In a similar manner the right middle thyroidal vein was sacrificed using LigaSure. Dissection then went superiorly to the superior pole. This side was similarly freed and the superior pole was controlled using 2 sutures superiorly and inferiorly with a clip noted superiorly. This was transected freeing the superior pole but unfortunately the tie on the superior pole came free with resulting bleeding. This was controlled via placement of 2 clips. But prior to the 2 clips being placed probably 20 to 30 mL of blood were lost. Dissection then progressed inferiorly much like on the left-hand side. Visualization was better on the patient's right-hand side than on the left-hand side but still every effort was made to fully identify the nerve and although there were 2 candidates I could not identify which was the nerve with certainty but in both cases great care was taken not to injure any of the tissues nearby these 2 candidates. On the patient's right-hand side both parathyroids were identified and retained in place. The thyroid was then rolled laterally to medially and its attachments to the midline (trachea) were taken using a combination of LigaSure as well as Bovie electrocautery and the thyroid was removed from the operative field. First the patient's left and then the right resection cavities were examined for hemostasis. A small persistent bleeder on the right-hand side was controlled using Bovie electrocautery but I believe due to the adhesive nature of the thyroid there was quite a bit of oozing and this was controlled via application of Surgiflo. The left inferior parathyroid was placed between the left sternohyoid and the left sternothyroid muscles. Again I repeat that I had marked this with a clip. No drain was required. The fascia of the sternohyoid muscle was then approximated using a 3-0 Vicryl suture in a running fashion. The platysma was approximated using a 3-0 Vicryl suture in an interrupted simple fashion. Five 5-0 nylon sutures were used to approximate the skin in an interrupted mattress fashion. The wound was then injected with 10 mL of 1/2% marcaine with epinephrine. The skin was prepped with Benzoin and Steri-Strips were placed between the sutures. Dressings were then applied. The plan is to remove the sutures tomorrow morning prior to discharge. Having tolerated the procedure well, the patient was extubated and I visualized the vocal cords and noted excellent motion. The patient was taken to PACU in good and stable condition. At this point a "timeout" was performed that confirmed that all counts were correct, the procedure that was performed, the blood loss, the IV fluids administered, the patient's condition and any concerns of the operating team had. The plan is for extended recovery to ensure that the patient does not have clinically significant postoperative hypocalcemia or bleeding. Today's documentation has been created with the assistance of voice recognition software. Therefore, it may contain anomalous punctuation, anomalous independent mis-recognitions, word substitutions, insertions or omissions. Occasional wrong-word or phonetically similar substitutions may also occur all due to the inherent limitations of voice recognition software. I have attempted to correct the above but I recommend that the chart be read carefully to recognize, using context, where the substitutions, insertions or omissions may have occurred.
[2025-05-30] MEDS ORDERED: HYDROcod/ACETAM 5/325 MG TABLET PO PRN (18:03)
[2025-05-30] MEDS: LACTATED RINGERS 1,000 ML IV SCH (18:43)
[2025-05-30] MEDS ORDERED: TRANEXAMIC ACID IN NACL 1,000 MG/100 ML BAG IV ONE (19:37)
--- NOTE | 2025-05-30 20:02 | PROVIDER PROGRESS NOTE ---
Subjective Prog Note Date Prog Note Date: 05/30/25 Prog Note Time: 19:57 Subjective Subjective: Called emergently by Bashir (nurse) after patient had an episode of severe nausea and retching and she started bleeding from her neck incision. I arrived to find the patient with the trachea midline, talking normally and breathing without stridor but with significant blood collection and swelling in neck. Current Medications Current Medications Current Medications: Current Medications Generic Name Dose Route Start Last Admin Trade Name Freq PRN Reason Stop Dose Admin Hydrocodone Bitart/Acetaminophen 1 tab 05/30/25 18:03 Hydrocod/Acetam 5/325 Mg Tablet PO Q4HR PRN Moderate Pain (Level 4-6) Hydromorphone HCl 0.5 mg 05/30/25 18:03 05/30/25 18:41 Hydromorphone 0.5 Mg/0.5 Ml Syringe IVP 0.5 mg Q30M PRN Administration Severe Breakthrough pain(7-10) Lactated Ringer's 1,000 mls @ 100 mls/hr 05/30/25 18:03 05/30/25 18:43 Lr IV 100 mls/hr .Q10H BRIDGER Administration Levothyroxine Sodium 125 mcg 05/31/25 07:00 Levothyroxine 125 Mcg Tablet PO QDAC BRIDGER Ondansetron HCl 4 mg 05/30/25 18:03 05/30/25 18:59 Ondansetron 4 Mg/2 Ml Vial IVP 4 mg Q6HR PRN Administration Nausea / Vomiting Oxycodone HCl 5 mg 05/30/25 18:03 Oxycodone 5 Mg Tablet PO Q4HR PRN Moderate Pain (Level 4-6) Objective Vital Signs/Intake & Output Reviewed Vital Signs: Yes Vital Signs: Vital Signs x48h Temp Pulse Pulse Resp BP BP Pulse Ox 05/30/25 18:14 36.1 C L 77 18 117/77 97 05/30/25 17:44 36.1 C L 76 20 106/63 97 05/30/25 17:14 36.1 C L 79 20 101/61 97 05/30/25 17:11 75 16 108/66 94 05/30/25 17:00 77 20 103/62 93 05/30/25 17:00 36.3 C L 77 17 98/58 L 93 05/30/25 16:55 83 18 108/66 93 05/30/25 16:50 94 15 103/67 94 05/30/25 16:45 91 15 118/74 94 05/30/25 16:45 102 H 21 118/74 96 05/30/25 16:45 85 16 108/66 95 05/30/25 16:40 107 H 21 100/61 95 05/30/25 16:35 93 13 102/55 L 97 05/30/25 16:30 36.6 C 97 16 94/56 L 97 05/30/25 16:29 97 27 H 96/54 L 97 05/30/25 16:29 101 H 13 97 O2 Flow Rate 05/30/25 18:14 05/30/25 17:44 05/30/25 17:14 05/30/25 17:11 05/30/25 17:00 05/30/25 17:00 05/30/25 16:55 05/30/25 16:50 05/30/25 16:45 05/30/25 16:45 05/30/25 16:45 05/30/25 16:40 05/30/25 16:35 10 05/30/25 16:30 10 05/30/25 16:29 05/30/25 16:29 Intake & Output: Intake & Output 05/27/25 05/28/25 05/29/25 05/30/25 23:59 23:59 23:59 23:59 Intake Total 2900 / 2900 Balance 2900 / 2900 Weight (kg) 71 kg Objective Neck: positive Trachea midline and Other (Significant blood collection in neck with ecchymosis.); negative Tracheal deviation Respiratory: positive Chest non-tender, No respiratory distress and Breath sounds nml Cardiovascular: positive Regular rate & rhythm and No murmur Abdomen: positive Non-tender Lab Results Other Labs: Lab Results x24hrs 05/30/25 Range/Units 11:05 Urine HCG, Qual NEGATIVE ABX Reporting Has patient been on IV antibiotics over the past 48 hours?: Yes Assessment/Plan Problem List (1) Hematoma of neck: (2) S/P thyroidectomy: Impression: STAT return to operating room for hemostasis. Patient consented. Possibility of overnight intubation discussed.
[2025-05-30] MEDS ORDERED: PROPOFOL 1000 MG/100 ML 1,000 MG/100 ML BOTTLE IV ONE (20:58)
[2025-05-30] MEDS ORDERED: SCOPOLAMINE PATCH TOP ONE (21:15)
--- NOTE | 2025-05-30 21:40 | OPERATIVE REPORT ---
Operative Report General Procedure Data: Operation Date: 05/30/25 20:00 Proposed Procedures p Incision and Drainage(Not Applicable) - Kiran Dan MD Actual Procedures p NECK EXPLORATION WITH CONTROL OF BLEEDING(Right) - Kiran Dan MD Pre-Op Diagnosis: NECK BLEEDING FOLLOWING THYROIDECTOMY Anesthesia Type General Case Staff Anesthesia Provider: [place] Beltran Assisting Provider: Puneet Espinoza Case Times Procedure Start: 05/30/25 20:17 Procedure End: 05/30/25 21:21 Time out: 05/30/25 20:16 Other Other Information/Narrative: Patient Name: Zay Ornelas Patient date: 2000 Patent MR number: [id number] Date of procedure: 05/30/2025 Preoperative Diagnosis/Indications: Neck hematoma following total thyroidectomy today Postoperative Diagnosis: Neck hematoma following total thyroidectomy today Procedure: Exploration of neck with evacuation of hematoma and control of bleeding CPT 61274 Fluids: 1000 mL EBL: 5 mL Urine output: Not measured Drains: 10 [place]gu[place] Findings: Significant clot beneath the strap muscles bilaterally with no one bleeding siteoozing Complications: None Surgeon/Dictated by: Kiran Dan MD Tractor Trailer Operator: Kristy Espinoza MD Sales Coach: [place] Bel[place] CRNA Anesthesia type: General Endotracheal +20 mL half percent Marcaine with epinephrine Procedure: The patient was evaluated urgently and after verbal and written informed consent was obtained detailing the operation, the alternatives the operation including no operation, risks of infection, bleeding requiring transfusion with its risks, nerve injury, and , the patient was brought to the operative suite and placed supine on the operating table. Great care was taken to avoid pressure points to prevent pressure necrosis or nerve injury. Monitoring devices were applied along with TEDs and pneumatic compression stockings (to prevent DVT). An intravenous line was started and anesthesia was maintained throughout the case. The patient was monitored for cardiac, blood pressure, and oxygen saturation continuously. The patient received preoperative antibiotics for surgical prophylaxis. [place] Beltran CRNA sedated and anesthetized the patient for the entire procedure. The patient was prepped and draped in the usual sterile manner. With the patient draped my initials were clearly visible. A "time in" then confirmed that the patient was identified with 3 identifiers (name, date, and medical record number), the history and physical was up dated and in the chart, the signed consent confirming the procedure was in the chart, the patient was in the correct position, the aforementioned prophylactic measures were in place or given, we had the correct personnel and equipment to complete the procedure and that anesthesia and the surgical team were given an opportunity to express any concerns. With the agreement of everyone in the room we proceeded with the operation. The previous incision was opened by removing the 5 nylon sutures holding it closed. The Vicryl sutures that were approximating the platysma were similarly cut and removed. There was a small amount of clot in this area. The suture holding the strap muscles together was cut and removed and a deep to this is where the majority of the clot was found. This was found bilaterally. This clot was removed via suction and irrigation. Dr. Espinoza came and to assist with the operation and this was bullock in minimizing the operative time and maximizing operative exposure. After the clot was removed I packed the right and left side with Ray-Melvi's and waited approximately 5 minutes. I evaluated the right-hand side first. The Ray-Melvi was removed and the previous site of bleeding was not found to be actively bleeding with the clips still in place. Instead there were several small areas that were oozing and these were controlled using cautious Bovie electrocautery. After irrigating the area looking for a blush when none was found this area was packed using Surgicel. I then directed my attention to the left-hand side in a similar manner did not find any 1 site to be actively bleeding but there were several sites that were oozing. Again these were controlled using Bovie electrocautery and a very cautious manner. This side was then copiously irrigated using warm sterile saline. There was no blush. The irrigant was then removed and this area was also similarly packed with Surgicel. 5 minutes were allowed to elapse and upon removal of the Surgicel again no active site of bleeding was noted. Due to the patient's persistent ooze, I opted to pack both sides with Surgicel. Additionally I gave my approval for [place] Beltran to give Tranexamic acid. The backside of both strap muscles was examined for bleeding and no active bleeding was seen but there were some areas where cautious electrocautery was applied. At this point I placed a 10 Anguillan drain through a separate stab incision inferior to the initial incision and directed onto first the patient's right side and then the left side to help with any ooze that is left. This was secured to the skin using a 3-0 nylon which was Rodolfo sandaled about the drain. The fascia of the sternohyoid muscle was then approximated using a 3-0 Vicryl suture in a running fashion. The platysma was approximated using a 3-0 Vicryl suture in an interrupted simple fashion. Five 4-0 nylon sutures were used to approximate the skin in an interrupted mattress fashion. Having tolerated the procedure well but with a concern for ongoing coughing, retching, vomiting I opted to leave the patient intubated overnight with a plan on removing the endotracheal tube as gently as possible in the morning. As a result the patient will be going to the intensive care unit. The plan is to remove the sutures tomorrow morning prior to discharge. The patient will be watched overnight for hypocalcemia. At this point a "timeout" was performed that confirmed that all counts were correct, the procedure that was performed, the blood loss, the IV fluids administered, the patient's condition and any concerns of the operating team had. Dressings were then applied. Today's documentation has been created with the assistance of voice recognition software. Therefore, it may contain anomalous punctuation, anomalous inde pendent mis-recognitions, word substitutions, insertions or omissions. Occasional wrong-word or phonetically similar substitutions may also occur all due to the inherent limitations of voice recognition software. I have attempted to correct the above but I recommend that the chart be read carefully to recognize, using context, where the substitutions, insertions or omissions may have occurred.
--- NOTE | 2025-05-30 21:51 | ANESTHESIA POST OP EVALUATION ---
Anesthesia Post Eval Post Anesthesia Eval Vitals: Last Vital Signs Temp 36.1 C L 05/30/25 18:14 Pulse 77 05/30/25 18:14 Resp 18 05/30/25 18:14 BP 117/77 05/30/25 18:14 Pulse Ox 97 05/30/25 18:14 O2 Flow Rate 10 05/30/25 16:35 CV Function Including HR & BP: Stable Pain Control: Additional Therapies Ordered (sedation and pain medication ordered by MD) Nausea & Vomiting: Negative Mental Status: Other (sedated and intubated) Respiratory Status: Airway Patent (7.0 ETT 20@teeth) Hydration Status: Satisfactory Anesthesia Complications: None Other Details/Therapies Other Details/Therapies: Decision to leave intubated after intubation with glidescope revealed midline airway, but with significantly more swelling than earlier in day for first intubation.
[2025-05-30] MEDS: PROPOFOL 1000 MG/100 ML 1,000 MG/100 ML BOTTLE IV SCH (22:13)
[2025-05-30] MEDS: SODIUM CHLORIDE FLUSH 0.9% 10 ML SYRINGE IVP SCH (22:28)
[2025-05-30 23:06] LABS: ABG BASE EXCESS -7.0 mmol/L (-2.0-3.0); ABG HCO3 19.1 mmol/L (22.0-26.0); ABG OXYGEN SATURATION 100 % (95-98); ABG PCO2 36 mmHg (34-45); ABG PH 7.34 (7.35-7.45); ABG PO2 151 mmHg (83-108); ABG TCO2 20.2 mmol/L (21.0-29.0)
[2025-05-30 23:07] LABS: ABG FRACTION OF INSPIRED O2 30.00; ABG MODE OF VENTILATION ASSIST/CONTROL; ABG RESPIRATORY RATE 14 b/min
[2025-05-30] MEDS: MIDAZOLAM 2 MG/2 ML VIAL IVP ONE (23:15)
[2025-05-30] MEDS: DEXMEDETOMIDINE 400 MCG/100 ML 100 ML IV PRN (23:37)
[2025-05-31 04:34] LABS: HCT - HEMATOCRIT 36.3 % (37.0-47.0); HGB - HEMOGLOBIN 12.1 g/dL (12.0-16.0); MEAN PLATELET VOLUME 10.0 fL (7.9-10.8); NRBC ABSOLUTE COUNT (AUTO) 0.00 x10^3/uL; NUCLEATED RED BLOOD CELLS AUTO 0.0 /100WBC; PLT - PLATELET COUNT 236 10^3/uL (130-450); RED CELL DISTRIBUTION WIDTH 12.1 % (12.0-15.0)
[2025-05-31 04:44] LABS: VBG PH 7.457 (7.31-7.41)
[2025-05-31 04:53] LABS: ALT ALANINE AMINOTRANSFERASE 10.0 IU/L (10-60); AST ASPARTATE AMINOTRANSFERASE 14.0 IU/L (10-42); BUN - BLOOD UREA NITROGEN 8.0 mg/dL (6-20); CARBON DIOXIDE - CO2 24.0 mmol/L (21-32); CREATININE 0.8 mg/dL (0.6-1.3); GFR - MDRD 88.0 (>89); PHOSPHORUS 4.3 mg/dL (2.5-5.0)
[2025-05-31] MEDS: SODIUM CHLORIDE FLUSH 0.9% 10 ML SYRINGE IVP PRN (06:14)
[2025-05-31] MEDS: PANTOPRAZOLE 40 MG VIAL IVP SCH (06:14)
[2025-05-31] MEDS: LEVOTHYROXINE 125 MCG TABLET PO SCH (07:25)
[2025-05-31] MEDS: POTASSIUM CHLOR 10 MEQ/100 ML 10 MEQ/100 ML BAG IV SCH ×2 (07:36→12:04)
[2025-05-31] MEDS: CALCIUM GLUC 1,000MG/50ML-NACL 1,000 MG/50 ML BAG IV ONE ×2 (07:36→12:04)
--- NOTE | 2025-05-31 08:56 | XRAY Report ---
PROCEDURE: XR Post ET Tube 1V CXR INDICATIONS: post tube placement TECHNIQUE: One view of the chest was acquired. COMPARISON: None. FINDINGS: Surgical changes and devices: Endotracheal tube with tip overlying the mid intrathoracic trachea. Surgical drain overlies the inferior neck. Lungs and pleura: No pleural effusions or pneumothorax. No consolidation. Mediastinum: Mediastinal contours appear normal. Heart size is normal. Bones and chest wall: No suspicious bony lesions. Overlying soft tissues appear unremarkable. IMPRESSION: Endotracheal tube with tip overlying the mid intrathoracic trachea. Reviewed by: Morgan Meier MD on 05/31/2025 8:52 AM PDT Approved by: Morgan Meier MD on 05/31/2025 8:52 AM PDT Station ID: [id number]
[2025-05-31 11:14] LABS: VBG PH 7.441 (7.31-7.41)
--- NOTE | 2025-05-31 12:21 | PHARMACY PROGRESS NOTE ---
Best Possible Medication History Admit Date and Time: Home Medications Medication Instructions Recorded Confirmed Type No Known Home Medications 05/31/2505/11 History Processed by: Pharmacy (Medication reconciliation completed by Regulatory Affairs InternGiovanna) Medications reviewed in ED?: No Medication History completed: Yes Patient Interview: Pt unable to participate Secondary Source(s): Spouse/Significant other and Insurance records [facility] Statement: As the person ultimately responsible for medication therapy, providers are able to order a medication from an existing home medication list in [facility] via the "Reconcile Routine" prior to Confirmation of that medication by accounting support specialist. Such practice is discouraged except when the physician, in their clinical judgment, deems that a medical need exists for a medication without regard to previous use.
[2025-05-31] MEDS: DEXAMETHASONE 10 MG/ML VIAL IVP ONE (14:52)
--- NOTE | 2025-05-31 15:41 | PROVIDER PROGRESS NOTE ---
Subjective General Procedure Date: 05/30/25 Post Op Days: 1 Procedure Performed: Total thyroidectomy followed by urgent return to the operating room for pos Wound Assessment Wound/Incisions: positive Healing well and Drainage (Thin blood) Drain Type: 10 Portuguese Drain Output Description: Blood Approximate mls Output: 20 mL Review of Systems I did not perform a complete and total review of systems today. Exam Exam Vital Signs: Vital Signs x48h Temp Pulse Pulse Resp BP Pulse Ox 05/31/25 15:00 36.9 C 83 20 92/62 97 05/31/25 14:00 37.0 C 71 14 92/60 98 05/31/25 13:11 71 05/31/25 13:00 37.0 C 68 14 90/56 L 98 05/31/25 12:00 37.2 C 73 14 88/58 L 97 05/31/25 11:00 37.2 C 75 16 96/61 97 05/31/25 10:01 75 05/31/25 10:00 37.4 C 77 14 98/62 97 05/31/25 09:00 37.5 C 80 24 98/56 L 97 05/31/25 08:01 84 05/31/25 08:00 37.7 C 84 14 95/52 L 97 The patient was seen and examined twice today. The first time the patient was seen and evaluated was at 830 this morning and then again now. In the interim the patient has been extubated successfully and the patient is doing well. H usband at bedside. General: 24-year old female, appears stated age, well developed, well nourished evaluated in room 2301 at [facility] intensive care unit HEENT: Normocephalic, atraumatic, extraocular movement intact, mucous membranes pink and moist, sclera anicteric and not injected, speaking and phonating well without difficulty, no stridorous breathing Neck: Pain with motion, 5 sutures closing the wound well with ecchymosis but without erythema or exudate, [address] draining thin blood Cardiac: Regular rate and rhythm without rub, gallop, or murmur Chest: Clear to auscultation bilaterally Abdomen: Benign Genitourinary: Deferred Rectal: Deferred Extremities: No gross neurovascular problem, no clubbing, cyanosis or edema, good bilaterally symmetric director of materials strength Gait: Not evaluated as I did not have the patient get out of bed Psychiatric: Alert and oriented to person place and time, asks and answers questions appropriately, mood and affect appropriate ABX Reporting Has patient been on IV antibiotics over the past 48 hours?: Yes Impression/Plan Problem List (1) Hematoma of neck: (2) S/P thyroidectomy: Plan Day 1 s/p total thyroidectomy for Graves' disease followed by an urgent return to the operating room for bleeding within the neck (hematoma). Pain Controlled now with oral agents. Pain is commensurate with procedure performed. Airway Extubated. Phonating well. Breathing well without stridor. Pronouncing "E" with a clear trejo-like quality. Hematoma Evacuated during last night's surgery but ecchymosis is expected. Will leave drain in an additional day. Thyroid Started on levothyroxine 125 mcg tablets today and will check TSH in approximately 6 weeks. I assured the patient that I would manage her thyroid medications until we achieve steady state. CPT 54028
[2025-05-31] MEDS ORDERED: LACTATED RINGERS 1,000 ML IV SCH (17:00)
--- NOTE | 2025-05-31 20:10 | ANESTHESIA POST OP EVALUATION ---
Anesthesia Post Eval Post Anesthesia Eval Vitals: Last Vital Signs Temp 36.9 C 05/31/25 15:00 Pulse 63 05/31/25 16:00 Resp 15 05/31/25 16:00 BP 89/58 L 05/31/25 16:00 Pulse Ox 98 05/31/25 16:00 O2 Flow Rate 10 05/30/25 16:35 CV Function Including HR & BP: Stable Pain Control: Satisfactory Nausea & Vomiting: Negative Mental Status: Baseline Respiratory Status: Airway Patent (I was asked to be present during extubation by Dr. Dan, patient off propofol but left on precedex. follows command and meets RT criteria, extubated without trauma or coughing. Patient verbal and comfortable, asking about her young child at home.) Hydration Status: Satisfactory Anesthesia Complications: None
[2025-05-31] MEDS: oxyCODONE 5 MG TABLET PO PRN (22:05)
--- NOTE | 2025-06-01 09:14 | Discharge Summary ---
"Discharge Summary Admit Date: 05/30/25 Discharge Date: 06/01/25 Discharging Provider: Kiran Dan DIAGNOSES Admission Diagnoses: Graves' disease Discharge Diagnoses with Status of Each Condition: Same status post total thyroidectomy HPI History of Present Illness: Patient is a very pleasant 24-year-old female who opted for total thyroidectomy for treatment of her Graves' disease. The operation was completed on 05/30/2025 and went urgently to the operating room for bleeding in her neck which was controlled. She was kept to ensure that there was no additional bleeding. CONSULTS | PROCEDURES Procedures: Total thyroidectomy followed by urgent neck exploration for removal of hematoma both on 05/30/2025 HOSPITAL COURSE Hospital Course: Hospital course was mildly complicated by the neck hematoma following her surgery. This was promptly identified and corrected. ALLERGIES Allergies Allergy/AdvReac Type Severity Reaction Status Date / Time No Known Drug Allergies Allergy Verified 05/30/25 11:05 MEDICATIONS Ambulatory Orders Medication Instructions Recorded Confirmed levothyroxine 125 mcg tablet 125 mcg PO QDAC #45 tabs 06/01/25 PHYSICAL EXAM AT DISCHARGE Vital Signs: Vital Signs x48h Temp Pulse Resp BP Pulse Ox 06/01/25 08:18 36.9 C 91 16 123/77 99 06/01/25 03:35 36.5 C 61 18 113/68 98 General: 24-year old female, appears stated age, well developed, well nourished HEENT: Normocephalic, atraumatic, extraocular movement intact, mucous membranes pink and moist, sclera anicteric and not injected, tongue midline, phonating well and easily, no stridorous breathing, I removed the stitches and applied Steri-Strips. The drain was similarly removed, the patient tolerated all of this quite well though she was quite anxious. Neck: Wound well-approximated with some surrounding ecchymosis but without erythema or exudate Cardiac: Regular rate and rhythm without rub, gallop, or murmur Chest: Clear to auscultation bilaterally Abdomen: Benign Genitourinary: Deferred Rectal: Deferred Extremities: No gross neurovascular problem, no clubbing, cyanosis or edema, good bilaterally symmetric operations and maintenance manager strength Gait: I did not have her get out of bed so I did not evaluate. Psychiatric: Alert and oriented to person place and time, asks and answers questions appropriately, mood and affect appropriate Eyes Bilateral: positive No scleral icterus LABS 05/31/25 04:29 05/31/25 11:05 FOLLOW UP Follow Up: In 1 week with me. The patient has been instructed to contact me with any surgical questions and or concerns. TIME SPENT Time Spent in Discharge (Minutes): 45 Discharge Plan Discharge Patient Disposition: 01 Home, Self Care Condition: Good Medically Cleared Date:: 06/01/25 Prescriptions: New levothyroxine 125 mcg Tablet 125 mcg PO QDAC Qty: 45 0RF Activity Restrictions/Additional Instructions: The patient can have a general diet. The patient can shower, hot tub, and swim. The wound does not need to be and likely should not be covered unless there is drainage. The patient can walk, climb stairs, and run. Ice pack to the surgical site only if it helps with symptoms. Patient should restart their normal medications today. Take the prescribed levothyroxine daily. Contact me with any surgical questions and/or concerns. Diet: Regular Interventions: Belongings Inventory Last Done: 05/30/25 22:40 Plan of Treatment: Continued healing. Print Language: Palestinian Patient Instructions: Surg Dc Follow-up Care: Kiran Dan MD [Provider Admit Priv/Credential, Surgery, General] - 06/08/25 Vitals documented within 30 minutes of discharge?: Yes"
[2025-06-01 09:30] LABS: ALT ALANINE AMINOTRANSFERASE 11.0 IU/L (10-60); AST ASPARTATE AMINOTRANSFERASE 16.0 IU/L (10-42); BUN - BLOOD UREA NITROGEN 10.0 mg/dL (6-20); CARBON DIOXIDE - CO2 23.0 mmol/L (21-32); CREATININE 0.8 mg/dL (0.6-1.3); GFR - MDRD 88.0 (>89)
[2025-06-01 09:57] VITALS: BP 115/75; TEMP 98.9; O2SAT 96
--- NOTE | 2025-06-02 10:24 | ANESTHESIA PROCEDURE NOTE ---
Pre-Anesthesia VS, & Labs Diagnosis Surgical Diagnosis:: Graves disease, s/p thyroidectomy, neck bleed Procedure Procedure: exploration of bleeding incision for hemostasis Vitals Vital Signs: Temp Pulse Resp BP Pulse Ox O2 Flow Rate 37.2 C 87 15 115/75 96 10 06/01/25 09:45 06/01/25 09:45 06/01/25 09:45 06/01/25 09:45 06/01/25 09:45 05/30/25 16:35 NPO NPO: >8 hours Is Patient ?: No Lab Results Current Lab Results: Laboratory Tests 06/01/25 09:01: Sodium 141, Potassium 3.2 L, Chloride 109, Carbon Dioxide 23, Anion Gap 9.0, BUN 10, Creatinine 0.8, Estimated GFR (MDRD) 88 L, Glucose 104, Calcium 8.5, Total Bilirubin 1.0, AST 16, ALT 11, Alkaline Phosphatase 82, Total Protein 6.4, Albumin 4.4, Globulin 2.0 L, Albumin/Globulin Ratio 2.2 05/31/25 11:05: VBG pH 7.441 H, Ionized Calcium 1.08 L, Potassium 3.9 05/31/25 04:29: WBC 11.3 H, RBC 3.75 L, Hgb 12.1, Hct 36.3 L, MCV 96.8, MCH 32.3 H, MCHC 33.3, RDW 12.1, Plt Count 236, MPV 10.0, Neut # (Auto) 9.9 H, Lymph # (Auto) 0.9 L, [place] # (Auto) 0.5, Eos # (Auto) 0.0, Baso # (Auto) 0.0, Absolute Nucleated RBC 0.00, Nucleated RBC % 0.0, VBG pH 7.457 H, Ionized Calcium 1.04 L, Sodium 139, Potassium 3.8, Chloride 109, Carbon Dioxide 24, Anion Gap 6.0, BUN 8, Creatinine 0.8, Estimated GFR (MDRD) 88 L, Glucose 146 H, Calcium 7.5 L, Phosphorus 4.3, Magnesium 1.9, Total Bilirubin 0.8, AST 14, ALT 10, Alkaline Phosphatase 86, Total Protein 5.6 L, Albumin 3.9, Globulin 1.7 L, A lbumin/Globulin Ratio 2.3 H 05/30/25 22:55: Bld Gas Analysis Time 2305, Sample Site RIGHT RADIAL, ABG pH 7.34 L, ABG pCO2 36, ABG pO2 151 H, ABG HCO3 19.1 L, ABG Total CO2 20.2 L, ABG O2 Saturation 100 H, ABG Base Excess -7.0 L, Song Test POSITIVE, Respiration Rate 14, O2 Delivery Device VENTILATOR, Vent Mode ASSIST/CONTROL, FiO2 30.00, Tidal Volume 375, PEEP 5 Lab results reviewed: Yes 05/31/25 04:29 06/01/25 09:01 Meds/Allgy Home Medications Ambulatory Orders Medication Instructions Recorded Confirmed levothyroxine 125 mcg tablet 125 mcg PO QDAC #45 tabs 06/01/25 Allergies Allergies Allergy/AdvReac Type Severity Reaction Status Date / Time No Known Drug Allergies Allergy Verified 05/30/25 11:05 PFSH Active Problems All Active Problems (Updated 06/02/25 @ 00:00 by ) Endotracheally intubated (Acute) Vaginal pain (Acute) Medical History Medical History (Updated 06/02/25 @ 00:00 by ) History of posttraumatic stress disorder (PTSD) History of claustrophobia Hx of bipolar disorder Asthma Depression Anxiety Graves disease Nausea Vaginal delivery Surgical History Surgical History (Updated 06/02/25 @ 00:00 by ) S/P thyroidectomy Hx of colonoscopy Family History Family History Mother Cervical cancer Asthma Maternal grandfather Diabetes Heart problem Colon cancer Maternal grandmother Cancer Social History Social History (Updated 05/25/25 @ 10:21 by Mary Ann Hayes RN) Smoking Status: Never smoker Do you dip or chew tobacco?: No Do you vape?: No Do you feel safe in your home environment?: Yes History of physical, verbal, emotional, or financial abuse?: No ETOH Use: Wine Frequency: Occasional ETOH - Additional Notes: 1-2 month Substance Use: cannabis (any form) Substance Use Details: smokes 4 times week POLST Patient has POLST: No Anesthesia Exam (Expanded) Exam General: Alert, Oriented x3, Cooperative and Moderate distress Dental: WNL Mouth Openin Fingerbreadth Neck Mobility: Reduced (very painful with hematoma, extension worst) Mallampati classification: IV Respiratory: Lungs clear, Normal breath sounds and No respiratory distress Cardiovascular: Regular rate (tachy) Mental/Cognitive Status: Alert/Oriented X3 Cognitive Status: Within normal limits Plan Problem List (1) Hematoma of neck: (2) S/P thyroidectomy: Plan Day 1 s/p total thyroidectomy for Graves' disease followed by an urgent return to the operating room for bleeding within the neck (hematoma). Pain Controlled now with oral agents. Pain is commensurate with procedure performed. Airway Extubated. Phonating well. Breathing well without stridor. Pronouncing "E" with a clear trejo-like quality. Hematoma Evacuated during last night's surgery but ecchymosis is expected. Will leave drain in an additional day. Thyroid Started on levothyroxine 125 mcg tablets today and will check TSH in approximately 6 weeks. I assured the patient that I would manage her thyroid medications until we achieve steady state. CPT 51158 Plan Anesthesia Type: General Consent for Procedure(s) Verified and Reviewed: Yes Code Status: Attempt Resuscitation ASA Classification ASA classification: 2-Mild systemic disease Is this case an emergency?: Yes
== END 2025-06-01 09:49 | disposition home or self-care (01) ==
LOC: ICU 10:47 → SDS 10:47 → MS3 16:43 → ICU 20:52
PROVIDERS: ADMIT Surgery; ATTEND Surgery
PROC: THYROID (2025-05-30 12:00)
DX: E05.00 Thyrotoxicosis with diffuse goiter without thyrotoxic crisis or storm; R11.2 Nausea with vomiting, unspecified; E89.820 Postprocedural hematoma of an endocrine system organ or structure following an endocrine system procedure